=== PATIENT | male | born 1945 | race Caucasian/White ===

== ENCOUNTER → 2024-06-28 | Outpatient (CLI) | payer MEDICARE, SELFPAY ==
[2024-06-28 16:06] LABS: ALB/GLOB Ratio 0.9 RATIO (0.9-2.4); AST(SGOT) 51 U/L (15-37); Alanine Aminotransfer ALT/SGPT 91 U/L (16-61); Albumin, Serum 3.9 g/dL (3.2-5.0); Alkaline Phosphatase 53 U/L (45-117); Anion Gap 6 (5-15); BUN 16 mg/dL (7-18); Calcium,Total 10.2 mg/dL (8.5-10.1); Chloride 104 mmol/L (98-107); Cholesterol 174 mg/dL (200); Creatinine, Serum 1.14 mg/dL (0.70-1.30); EST Glomerular Filtration Rate 66 mL/min (>60); Est Glom Filt Rate - Afr Amer 80 mL/min (>60); Globulin 4.4 g/dL (2.2-4.2); Glucose 89 mg/dL (74-106); High Density Lipoprotein 52 mg/dL; Potassium 4.4 mmol/L (3.5-5.1); Protein, Total 8.3 g/dL (6.4-8.2); Sodium Level 137 mmol/L (136-145); T4 Free Direct 1.19 ng/dL (0.76-1.46); Triglycerides 162 mg/dL; Very Low Density Lipoprotein 32 mg/dL (5-40)
== END | disposition home or self-care (01) ==
LOC: BIMLAB 13:37
PROVIDERS: PCP Family Medicine; Referring Provider Internal Medicine; Visit Provider Internal Medicine
DX: E11.9 Type 2 diabetes mellitus without complications (principal); K52.9 Noninfective gastroenteritis and colitis, unspecified; R35.0 Frequency of micturition; Z12.5 Encounter for screening for malignant neoplasm of prostate
CPT/HCPCS: 36415; 80053; 80061; 84153; 84439; 84443; G0103

== ENCOUNTER → 2025-04-27 | Outpatient (CLI) | payer MEDICARE, SELFPAY ==
[2025-04-27 10:20] LABS: Absolute Lymphocyte Count 2.19 X10^3/uL (0.83-4.51); Basophil# 0.07 X10^3/uL; Basophil% 1.1 % (0-1); Eosinophil# 0.36 X10^3/uL; Eosinophils% 5.7 % (0-5); Hematocrit 44.3 % (40-54); Hemoglobin 15.6 g/dL (13.0-16.5); Lymphocyte # 2.19 X10^3/ul (0.83-4.51); Lymphocyte % 34.9 % (19-41); Mean Corp Hgb Conc 35.2 g/dL (32-36); Mean Corpuscular Hgb 32.9 pg (27.0-32.0); Mean Corpuscular Volume 93.5 fL (80-94); Mean Platelet Vol. 10.1 fl (6.2-12.0); Monocyte% 9.6 % (0-10); NRBC Flagged by Analyzer 0 % (0-5); Neutrophil # 3.04 X10^3/uL (2.7-7.7); Neutrophil % 48.4 % (47-70); Platelet Count 193 K/mm3 (150-450); RBC Distribution Width CV 11.9 % (11.6-14.6); Red Blood Count 4.74 M/mm3 (4.6-6.2); White Blood Count 6.3 K/mm3 (4.4-11.0)
[2025-04-27 10:47] LABS: ALB/GLOB Ratio 1.2 RATIO (0.9-2.4); AST(SGOT) 47 U/L (<=37); Alanine Aminotransfer ALT/SGPT 71 U/L (<=46); Alkaline Phosphatase 49 U/L (40-129); Anion Gap 12 (5-15); BUN 18 mg/dL (4-19); BUN/Creat Ratio 15.3 RATIO (10-20); Calcium,Total 9.8 mg/dL (7.6-11.0); Carbon Dioxide 21.8 mmol/L (21.0-32.0); Chloride 105 mmol/L (98-108); Cholesterol 160 mg/dL (<=200); Creatinine, Serum 1.16 mg/dL (0.70-1.20); EST Glomerular Filtration Rate 65 (>60); Globulin 3.4 g/dL (2.2-4.2); Glucose 102 mg/dL (70-99); High Density Lipoprotein 47 mg/dL; Low Density Lipoprotein Calc. 83 mg/dL; Potassium 4.4 mmol/L (3.3-5.1); Protein, Total 7.3 g/dL (5.9-8.4); Sodium Level 139 mmol/L (133-145); Total Bilirubin 0.59 mg/dL (0.00-1.30); Triglycerides 150 mg/dL; Very Low Density Lipoprotein 30 mg/dL (5-40); cholesterol:hdl ratio screen 3.38
--- OUTSIDE RECORDS SUMMARY | 2025-04-27 11:38 | XMS RPT_ITS | CCD ---
Author Organization [facility] Care Team Providers Care Insurance Assistant Name Role Phone VON TOBIN DO Primary Care Physician VON TOBIN DO Attending Unavailable VON TOBIN DO Primary Care Unavailable VON TOBIN DO Attending Unavailable VON TOBIN DO Primary Care Unavailable DR CLYDE MAGDALENO MD Attending UnavailVON Glass DO Primary Care Unavailable [place] Khanna Primary Care Unavailable [place] Khanna Referring Unavailable Kyle Hernandez Attending Unavailable Gil Montalvo Attending Unavailable Gil Montalvo Referring Unavailable Kyle Hernandez Primary Care Unavailable Allergies Allergy Classification Reported Allergen(s) Allergy Type Date of Onset Reaction(s) Facility (3 sources) Sulfonamides (Antibiotic); Translations: [sulfa drugs] Drug allergy Tongue swelling (finding) [facility] (1 source) Sulfonamide; Translations: [sulfa drugs] Drug allergy Tongue swelling (finding) [facility] (1 source) Sulfonamides (Antibiotic) Drug allergy (disorder) 4 [facility] Repository Medications Current Medications Medication Drug Class(es) Dates Sig (Normalized) Sig (Original) dicyclomine hydrochloride 20 mg oral tablet (2 sources) Anticholinergic Start: 08-09-2023 dicyclomine 20 mg oral tablet Dose : 20 mg = 1 tab(s), Oral, QID, 30 to 60 minutes before meals, # 30 tab(s), 0 Refill(s), Pharmacy: [facility]/pharmacy #[id number], Diarrhea, 172.7, cm, 08/09/23 11:28:00 EDT, Height, kg, 08/09/23 11:28:00 EDT, Dosing Weight Start Date: 08/09/23 Status: Ordered lisinopril 30 mg oral tablet (4 sources) Angiotensin Converting Enzyme Inhibitor Start: 08-09-2023 lisinopril 30 mg oral tablet Dose : 30 mg = 1 tab(s), Oral, qDay, # 90 tab(s), 3 Refill(s), [id number], 172.7, cm, 08/09/23 11:28:00 EDT, Height, kg, 08/09/23 11:28:00 EDT, Dosing Weight Start Date: 08/09/23 Status: Ordered Start: 05-29-2022 lisinopril 30 mg oral tablet Dose : 30 mg = 1 tab(s), Oral, qDay, # 90 tab(s), 0 Refill(s), [id number], 172, cm, 02/10/21 11:03:00 EDT, Height, kg, 02/10/21 11:03:00 EDT, Dosing Weight Start Date: 05/29/22 Status: Ordered metFORMIN hydrochloride 1000 mg oral tablet (3 sources) Biguanide Start: 02-09-2023 metFORMIN 1000 mg oral tablet (IR) Dose : 1,000 mg = 1 tab(s), Oral, BID, # 180 tab(s), 1 Refill(s), [id number], 172, cm, 11/17/22 8:18:00 EST, Height, kg, 11/17/22 8:18:00 EST, Dosing Weight Start Date: 02/09/23 Status: Ordered Start: 12-08-2021 metFORMIN 1000 mg oral tablet (IR) Dose : 1,000 mg = 1 tab(s), Oral, BID, # 180 tab(s), 3 Refill(s), Pharmacy: [facility] #[id number], 172, cm, 02/10/21 11:03:00 EDT, Height, kg, 02/10/21 11:03:00 EDT, Dosing Weight Start Date: 12/08/21 Status: Ordered pravastatin sodium 40 mg oral tablet (4 sources) HMG-CoA Reductase Inhibitor Start: 08-09-2023 pravastatin 40 mg or al tablet Dose : 40 mg = 1 tab(s), Oral, qDay, # 90 tab(s), 3 Refill(s), [id number], 172.7, cm, 08/09/23 11:28:00 EDT, Height, kg, 08/09/23 11:28:00 EDT, Dosing Weight Start Date: 08/09/23 Status: Ordered Start: 05-29-2022 pravastatin 40 mg oral tablet Dose : 40 mg = 1 tab(s), Oral, qDay, # 90 tab(s), 0 Refill(s), 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 Complication of device; implant or graft (1 source) Atherosclerosis of coronary artery bypass graft(s) without angina pectoris; Translations: [Atherosclerosis of coronary artery bypass graft(s) without angina pectoris] Onset: 08-17-20 Chronic Diabetes mellitus without complication (9 sources) Type 2 diabetes mellitus without complication; Translations: [Type 2 diabetes mellitus] Onset: 08-17-20 24 06-23-2022 Chronic Disorders of lipid metabolism (4 sources) Pure hypercholesterolemia 06-23-2022 Chroni c Essential hypertension (4 sources) Essential hypertension 06-23-2022 Chronic Genitourinary symptoms and ill-defined conditions (1 source) Frequency of micturition; Translations: [Frequency of micturition] Onset: 08-17-20 Episodic Heart valve disorders (4 sources) Systolic murmur 06-23-2022 Episodic Noninfectious gastroenteritis (1 source) Noninfective gastroenteritis and colitis, unspecified; Translations: [Noninfective gastroenteritis and colitis, unspecified] Onset: 08-17-20 Episodic Other gastrointestinal disorders (2 sources) Diarrhea 08-09-2023 Episodic Other screening for suspected conditions (not mental disorders or infectious disease) (2 sources) Encounter for screening for malignant neoplasm of colon; Translations: [Encounter for screening for malignant neoplasm of colon] Onset: 11-22-19 Episodic Unclassified (2 sources) For resuscitation 08-09-2023 Unclassified (2 sources) Grade A1 albuminuria 11-17-2022 Unclassified (2 sources) Influenza vaccination declined Onset: 11-17-1911-17-2022 Unclassified (2 sources) Pneumococcal vaccination declined 07-27-2022 Unclassified (2 sources) SARS-CoV-2 vaccination declined 07-27-2022 Past or Other Problems Problem Classification Problem Date Documented Da te Episodic/Chronic Other gastrointestinal disorders (2 sources) Diarrhea, unspecified; Translations: [Diarrhea, unspecified] Onset: 08-18-2023 Episodic Results Test Name Value Interpretation Reference Range Facility Comprehensive Metabolic Prof [facility] 06-28-2024 Albumin [Mass/Vol] 3.9 g/dL Normal 3.2-5.0 [facility] Comment on above: Order Comment: Comme nts: Send to Dr. Hernandez Send to Dr. Hernandez Performed By: #### L 500.4050, L506.0400, L500.4100, L501.9520, L501.9910 #### [facility] [address] [place], [address] Albumin/Globulin [Mass ratio] 0.9 {ratio} Normal 0.9-2.4 [facility] Comment on above: Order Comment: Commliz nts: Send to Dr. Hernandez Send to Dr. Hernandez Performed By: #### L 500.4050, L506.0400, L500.4100, L501.9520, L501.9910 #### [facility] [address] [place], [address] ALK P 53 U/L Normal 45-117 [facility] Comment on above: Order Comment: Commliz nts: Send to Dr. Hernandez Send to Dr. Hernandez Performed By: #### L 500.4050, L506.0400, L500.4100, L501.9520, L501.9910 #### [facility] [address] [place], [address] ALT [Catalytic activity/Vol] 91 U/L High 16-61 [facility] Comment on above: Order Comment: Comme nts: Send to Dr. Hernandez Send to Dr. Hernandez Performed By: #### L 500.4050, L506.0400, L500.4100, L501.9520, L501.9910 #### [facility] [address] [place], [address] AST [Catalytic activity/Vol] 51 U/L High 15-37 [facility] Comment on above: Order Comment: Commliz nts: Send to Dr. Hernandez Send to Dr. Hernandez Performed By: #### L 500.4050, L506.0400, L500.4100, L501.9520, L501.9910 #### [facility] [address], [address] Bilirubin [Mass/Vol] 0.70 mg/dL Normal 0.20-1.00 [facility] Comment on above: Order Comment: Commliz nts: Send to Dr. Hernandez Send to Dr. Hernandez Result Comment: For patients on eltrombopag therapy, use of Dimension [place] TBIL is not recommended. Performed By: #### L 500.4050, L506.0400, L500.4100, L501.9520, L501.9910 #### [facility] [address] [place], [address] BUN/CRE 14.0 RATIO Normal 10-20 [facility] Comment on above: Order Comment: Estela nts: Send to Dr. Hernandez Send to Dr. Hernandez Performed By: #### L 500.4050, L506.0400, L500.4100, L501.9520, L501.9910 #### [facility] [address] [place], [address] CA,Total 10.2 mg/dL High 8.5-10.1 [facility] Comment on above: Order Comment: Estela nts: Send to Dr. Hernandez Send to Dr. Hernandez Performed By: #### L 500.4050, L506.0400, L500.4100, L501.9520, L501.9910 #### [facility] [address] [place], [address] Chloride [Moles/Vol] 104 mmol/L Normal 98-107 [facility] Comment on above: Order Comment: Comme nts: Send to Dr. Hernandez Send to Dr. Hernandez Performed By: #### L 500.4050, L506.0400, L500.4100, L501.9520, L501.9910 #### [facility] [address] [place], [address] CO2 [Moles/Vol] 27.0 mmol/L Normal 21.0-32.0 [facility] Comment on above: Order Comment: Commliz nts: Send to Dr. Hernandez Send to Dr. Hernandez Performed By: #### L 500.4050, L506.0400, L500.4100, L501.9520, L501.9910 #### [facility] [address] [place], [address] Creatinine [Mass/Vol] 1.14 mg/dL Normal 0.70-1.30 [facility] Comment on above: Order Comment: Commliz nts: Send to Dr. Hernandez Send to Dr. Hernandez Result Comment: The validity of the calculated GFR GFRAA in patients over 70 years has not been determined. Clinical correlation is essential. Performed By: #### L 500.4050, L506.0400, L500.4100, L501.9520, L501.9910 #### [facility] [address] [place], [address] EST GFR - AA 80 mL/min Normal >60 [facility] Comment on above: Order Comment: Commliz nts: Send to Dr. Hernandez Send to Dr. Hernandez Result Comment: Afri can Fijian GFR Calc Performed By: #### L 500.4050, L506.0400, L500.4100, L501.9520, L501.9910 #### [facility] [address] [place], [address] GAP 6 Normal 5-15 [facility] Comment on above: Order Comment: Commliz nts: Send to Dr. Hernandez Send to Dr. Hernandez Performed By: #### L 500.4050, L506.0400, L500.4100, L501.9520, L501.9910 #### [facility] [address] [place], [address] GFR/1.73 sq M.predicted among non-blacks MDRD (S/P/Bld) [Vol rate/Area] 66 mL/min/{1.73_m2} Normal >60 [facility] Comment on above: Order Comment: Commliz nts: Send to Dr. Hernandez Send to Dr. Hernandez Result Comment: Non- GFR Calc Performed By: #### L 500.4050, L506.0400, L500.4100, L501.9520, L501.9910 #### [facility] [address] [place], [address] Globulin (S) [Mass/Vol] 4.4 g/dL High 2.2-4.2 [facility] Comment on above: Order Comment: Commliz nts: Send to Dr. Hernandez Send to Dr. Hernandez Performed By: #### L 500.4050, L506.0400, L500.4100, L501.9520, L501.9910 #### [facility] [address] [place], [address] Glucose [Mass/Vol] 89 mg/dL Normal 74-106 [facility] Comment on above: Order Comment: Commliz nts: Send to Dr. Hernandez Send to Dr. Hernandez Performed By: #### L 500.4050, L506.0400, L500.4100, L501.9520, L501.9910 #### [facility] [address] [place], [address] Potassium [Moles/Vol] 4.4 mmol/L Normal 3.5-5.1 [facility] Comment on above: Order Comment: Commliz nts: Send to Dr. Hernandez Send to Dr. Hernandez Performed By: #### L 500.4050, L506.0400, L500.4100, L501.9520, L501.9910 #### [facility] [address] [place], [address] Sodium [Moles/Vol] 137 mmol/L Normal 136-145 [facility] Comment on above: Order Comment: Commliz nts: Send to Dr. Hernandez Send to Dr. Hernandez Performed By: #### L 500.4050, L506.0400, L500.4100, L501.9520, L501.9910 #### [facility] [address] [place], [address] T PROT 8.3 g/dL High 6.4-8.2 [facility] Comment on above: Order Comment: Estela nts: Send to Dr. Hernandez Send to Dr. Hernandez Performed By: #### L 500.4050, L506.0400, L500.4100, L501.9520, L501.9910 #### [facility] [address] [place], [address] Urea nitrogen [Mass/Vol] 16 mg/dL Normal 7-18 [facility] Comment on above: Order Comment: Commliz nts: Send to Dr. Hernandez Send to Dr. Hernandez Performed By: #### L 500.4050, L506.0400, L500.4100, L501.9520, L501.9910 #### [facility] [address] [place], [address] Internal Medicine Office Vis karina 06-28-2024 Internal Medicine Office Visit [facility] [place] [address] [place] [address] OFFICE VISIT Date of Service: 06/28/24 MR#: [id number] Acct: [id number] Name: JEAN BLACKMON Rep #: [id number] : 1945 Provider: Dr. Kyle atwood DO Age/Sex: 78/M Location: [facility] Status: Signed Intake Vital Signs 06/28/24 12:59 Height 5 ft 7 in Weight: 214 lb 4 oz BMI 33.5 BP 136/88 H Blood Pressure Location Lt brachial Position Sitting Respiration 16 Pulse 69 Pulse Source Monitor Temp 98.2 F Temp Source Temporal Pulse Oximetry (%) 97 Oxygen Delivery Method room air Intake Visit Reasons: EST NEW PT - PPWK SENT Chief Complaint: est care Quality Officer Required: No Accompanied by: Self Is patient in pain?: No Allergies Sulfa (Sulfonamide Antibiotics) Allergy (Intermediate, Verified 06/28/24 12:53) Angioedema Medications ???Medication ???Instructions ???Recorded ???Confirmed ???Type lisinopril 30 mg tablet mg PO 06/28/24 06/28/24 History pravastatin 40 mg tablet 40 mg PO QDAY 06/28/24 06/28/24 History saw palm 160 mg-vit E 100 tab PO 06/28/24 06/28/24 History unit-selen 100 sdk-mhxu-uhrtyu-pygeum tablet (Prostate Health) Have you fallen in the past year?: No PFSH Medical History (Updated 06/28/24 @ 14:[address] Kyle Hernandez, ) Urinary frequency Chronic diarrhea Type 2 diabetes mellitus Heart murmur Diabetes Cataracts, bilateral Surgical History (Updated 06/28/24 @ 12:51 by Virginia Charles MA) History of heart bypass surgery Hx of knee surgery Hx of hernia repair Family History (Updated 06/28/24 @ 12:54 by Virginia Charles MA) Mother Colon cancer, Onset Age: 80 Father Colon cancer, Onset Age: 75 Social History (Updated 06/28/24 @ 12:59 by Virginia Charles MA) household members: spouse housing: house current occupational status: retired Smoking Status: Never smoker alcohol intake: current alcohol intake frequency: holidays/special occasions only substance use type: does not use what type of physical activity do you participate in: none seatbelt use: always do you feel safe at home: Yes HPI HPI Chief Complaint: est care Details: JEAN BLACKMON, is a 78 M who presents to the office today for a visit to establish care. His major complaint is that he is having severe spontaneous loose stools when he tries to exercise. Occasionally he has difficulty with spontaneous urination when he exercises 2. He had a colonoscopy in November of this year that was normal but the mechanical project engineer did not give him any advice on what to do for his bowel problem. He had been taking metformin but was informed a year ago that the doctor at that time did not think he had diabetes. He has a long history of coronary artery disease and has had cardiac bypass surgery about 10 years ago. He has no shortness of breath, no chest discomfort. He has a chronic cough for he coughs up minor amounts of phlegm. ROS Const Constitutional: No body ache, chills, excessive sweating, fatigue, fever(s), frequent falls, headache(s), snoring, weakness or change in appetite Eyes Eyes: No blurry vision, change in vision, eye pain or Light sensitivity ENT ENT: No abnormal hearing, ear or mastoid pain, tinnitus, nasal congestion, headache(s), neck pain or sore throat Resp Respiratory: No cough, shortness of breath, snoring or wheezing Cardio Cardiology: No chest pain at rest, chest pain with exertion, excessive sweating, dyspnea on exertion, lightheadedness, orthopnea or palpitations Gastro GI: No abdominal pain, change in bowel habits, constipation, cramping, diarrhea, nausea/dyspepsia or vomiting Genitourinary Male: No burning urination, painful urination, urinary incontinence or urinary frequency Musc Musculoskeletal: No abnormal gait, joint pain, back pain, limited range of motion, muscle weakness, neck pain or numbness Skin Skin: No dry skin, redness, lesions, itchy eyes, rash or wounds Neuro Neurology: No abnormal gait, abnormal hearing, weakness, frequent falls, headache(s), memory loss or numbness Psych Psychiatric: No anxiety, No change in appetite, No depression, No memory loss and No Thoughts of harming yourself/Others Endo Endocrine: No cold intolerance, excessive sweating, fatigue, flushing, heat intolerance, increased thirst/drinking or increased hunger Aller/Imm Allergy/Immunologic: No itchy eyes, seasonal allergy symptoms, hives or wheezing Mannie/Lymp Hematologic/Lymphatic: No easy bleeding or easy bruising Exam Const General: cooperative and healthy appearing Nutritional Appearance: average body habitus Orientation: oriented x3 HENMT Head: normal to inspection Ears: hearing grossly normal bilaterally, TM's normal bilaterally and EAC's normal Nose: external nose normal Face and sinus: norm (more content not included)... Normal [facility] Lipid Profileon 06-28-2024 Cholesterol [Mass/Vol] 174 mg/dL Normal 200 [facility] Comment on above: Order Comment: Commliz nts: Send to Dr. Hernandez Send to Dr. Hernandez Result Comment: <200 mg/dL Desirable 200-240 mg/dL Borderline >240 mg/dL High Risk Performed By: #### L 500.4050, L506.0400, L500.4100, L501.9520, L501.9910 #### [facility] [address] [place], [address] Cholesterol in HDL [Mass/Vol] 52 mg/dL Normal [facility] Comment on above: Order Comment: Comme nts: Send to Dr. Hernandez Send to Dr. Hernandez Result Comment: The drugs N-Acetylcysteine and Metamizole may falsely depress this assay. Reference Range HDL <40 mg/dL Low HDL Cholesterol HDL >or= 60 mg/dL High HDL Cholesterol Performed By: #### L 500.4050, L506.0400, L500.4100, L501.9520, L501.9910 #### [facility] [address] [place], [address] Cholesterol in LDL [Mass/Vol] 90 mg/dL Normal 0-130 [facility] Comment on above: Order Comment: Commliz nts: Send to Dr. Hernandez Send to Dr. Hernandez Performed By: #### L 500.4050, L506.0400, L500.4100, L501.9520, L501.9910 #### [facility] [address] [place], [address] Cholesterol in VLDL [Mass/Vol] 32 mg/dL Normal 5-40 [facility] Comment on above: Order Comment: Estela nts: Send to Dr. Hernandez Send to Dr. Hernandez Performed By: #### L 500.4050, L506.0400, L500.4100, L501.9520, L501.9910 #### [facility] [address] [place], [address] Triglyceride [Mass/Vol] 162 mg/dL Normal [facility] Comment on above: Order Comment: Comme nts: Send to Dr. Hernandez Send to Dr. Hernandez Result Comment: The drugs N-Acetylcysteine and Metamizole may falsely depress this assay. Serum Triglycerides Reference Interval Normal <150 mg/dL Borderline high 150 - 199 mg/dL High 200 - 499 mg/dL Very High > or = 500 mg/dL Performed By: #### L 500.4050, L506.0400, L500.4100, L501.9520, L501.9910 #### [facility] [address] [place], [address] PSA,Total - Annual Screenon 06-28-2024 PSA,TOT SCREEN 2.30 ng/mL Normal 0.00-4.00 [facility] Comment on above: Order Comment: Comme nts: Send to Dr. Hernandez Send to Dr. Hernandez Result Comment: This test was performed using the TPSA assay method for the [employer] chemistry system. Values obtained with different assay methods cannot be used interchangably. When changing PSA assays in the course of monitoring a patient, additional sequential testing should be carried out to confirm baseline values. Performed By: #### L 500.4050, L506.0400, L500.4100, L501.9520, L501.9910 #### [facility] [address] [place], [address] T4 Free Directon 06-28-2024 T4 FREE DIRECT 1.19 ng/dL Normal 0.76-1.46 [facility] Comment on above: Order Comment: Commliz nts: Send to Dr. Hernandez Send to Dr. Hernandez Performed By: #### L 500.4050, L506.0400, L500.4100, L501.9520, L501.9910 #### [facility] [address] [place], [address] Thyroid Stim Hormone (TSH)on 06-28-2024 TSH 1.540 uIU/mL Normal 0.358-3.740 [facility] Comment on above: Order Comment: Comme nts: Send to Dr. Hernandez Send to Dr. Hernandez Performed By: #### L 500.4050, L506.0400, L500.4100, L501.9520, L501.9910 #### [facility] [address] [place], [address] Final Surgical Pathology Rep armida 11-24-2023 Final Surgical Pathology Report . Pathology Reports Accession: Collected Date/Time: Received Date/Time: Pathologist: [id number] 11/22/2023 09:00 EST 11/23/2023 09:11 EST MD ABDIAZIZ OLIVER Final Surgical Pathology Report DIAGNOSIS: A. CECUM, BIOPSY: - SLIGHTLY POLYPOID FRAGMENTS OF COLONIC MUCOSA WITH NO SPECIFIC PATHOLOGIC CHANGES B. SIGMOID COLON, BIOPSY: - SLIGHTLY POLYPOID FRAGMENT OF COLONIC MUCOSA WITH NO SPECIFIC PATHOLOGIC CHANGES CLINICAL INFORMATION: PROCEDURE: COLONOSCOPY WITH POLYPECTOMY PREOPERATIVE DIAGNOSIS: DIARRHEA POSTOP DIAGNOSIS: SAME SPECIMEN: A CECUM POLYP B SIGMOID POLYP DISTAL GROSS DESCRIPTION: All parts labelled with patient name and [id number] A. Received in formalin labeled cecum polyp are 2 boateng tissue fragments measuring 0.2 and 0.3 cm. TS-1 B. Received in formalin labeled sigmoid polyp is 1 boateng tissue fragment measuring 0.3 cm. TS-1 Hayley Beard, Grossing Career Based Intervention Coordinator/ Dr. Minesh Gerardo, Pathologist Dictated by Hayley Beard MICROSCOPIC DESCRIPTION: The microscopic examination is performed, except in the case of Gross Only. Electronically Signed by Pathology Report verified by [facility] ABDIAZIZ OLIVER MD Sign out Date: 11/24/2023 08:29 Performing Lab: [facility], [address] [place] [address] Pathology Dept Disclaimer If ancillary studies were utilized, the following Laboratory Developed Test (LDT) disclaimer will apply: Under CLIA requirements, [facility] Laboratory is qualified to perform high complexity testing. For all ancillary stains, positive and negative controls stain appropriately. Performance characteristics of immunohistochemical and chromogenic in-situ hybridization tests have been determined by [facility]. These tests are used for clinical purposes, They should not be regarded as investigational or for research. Normal [facility]) LABORATORYOrdered By: Bozena Hernandez on 11-22-2023 Glucose [Mass/Vol] 107 mg/dL Normal 82 - 115 mg/dL [facility] CALPROon 08-19-2023 Calprotectin Interp Normal Normal Normal [facility]) Comment on above: Result Comment: On 2022, [facility] [employer] implemented a new fecal calprotectin method, the [employer] Liaison Calprotectin assay. For assistance with interpretation of results in patients undergoing serial monitoring, contact Client Services at [phone] or [phone] to discuss options, preferably within 7 days of issuing this report. Interpretation: <50.0 ug/g: Normal 50.0 ug/g - 120.0 ug/g: Borderline elevated. Re-evaluation in 4-6 weeks is recommended if clinically indicated. >120.0 ug/g: Elevated Performed By: [facility] [address] [place] [address] [employer] Machine Operator: Chao Hunter III, M.D. CLIA#: [id number] Performed By: #### C DIFFAO, CALPRO #### [place] [address] [place], [place] [address] #### STGIPCR #### [address] [address] Calprotectin, Fecal Quantitative 15.7 ug/g Normal <50 [facility] ([place]) Comment on above: Result Comment: Perf ormed By: [facility] [address] [place] [address] [employer] Machine Operator: Chao Hunter III, M.D. CLIA#: [id number] Performed By: #### C DIFFAO, CALPRO #### [place] [address] [place], [place] [address] #### STGIPCR #### [address] [address] CDIFFAOon 08-18-2023 Clostridium difficile toxin A/B PCR Negative Normal Negative [facility] ([place]) Comment on above: Performed By: #### C CORDELIA CALPRO #### [address] [address] #### STGIPCR #### [facility] [address] [place] [address] Clostridium difficile toxin A/B PCR Int Normal [facility] ([place]) Comment on above: Result Comment: José Miguel s C. difficile Negative result does not rule out the possibility of infection with toxigenic C. difficile. Satya C. difficile Assay results should not be used as the sole basis for diagnosis, treatment, or patient management decisions and should be interpreted in conjunction with other clinical and laboratory findings. See Below Performed By: #### Vicky STOREY CALPRO #### [address] [address] #### STGIPCR #### [place] [id number] LABORATORYOrdered By: Jacy Hernandes on 08-18-2023 Adenovirus 40+41 DNA FELIPE+non-probe Ql (Stl) Not Detected *NA* (08/18/23 10:49 AM) Invalid Interpretation Code Not Detected AH Auto Microbiology GL SS Astrovirus subtypes 1-8 RNA FELIPE+non-probe Ql (Stl) Not Detected *NA* (08/18/23 10:49 AM) Invalid Interpretation Code Not Detected AH Auto Microbiology GL SS C. cayetanensis DNA FELIPE+non-probe Ql (Stl) Not Detected *NA* (08/18/23 10:49 AM) Invalid Interpretation Code Not Detected AH Auto Microbiology GL SS C. coli+jejuni+upsalien sis DNA FELIPE+non-probe Ql (Stl) Not Detected *NA* (08/18/23 10:49 AM) Invalid Interpretation Code Not Detected AH Auto Microbiology GL SS Cryptosporidium sp DNA FELIPE+non-probe Ql (Stl) Not Detected *NA* (08/18/23 10:49 AM) Invalid Interpretation Code Not Detected AH Auto Microbiology GL SS E. coli enteroaggregative Lois plasmid aggR+aatA genes FELIPE+non-probe Ql (Stl) Not Detected *NA* (08/18/23 10:49 AM) Invalid Interpretation Code Not Detected AH Auto Microbiology GL SS E. coli enteropathogenic eae gene FELIPE+non-probe Ql (Stl) Not Detected *NA* (08/18/23 10:49 AM) Invalid Interpretation Code Not Detected AH Auto Microbiology GL SS E. coli enterotoxigenic ltA+st1a+st1b genes FELIPE+non-probe Ql (Stl) Not Detected *NA* (08/18/23 10:49 AM) Invalid Interpretation Code Not Detected AH Auto Microbiology GL SS E. coli O157 DNA FELIPE+non-probe Ql (Stl) Not Applicable (08/18/23 10:49 AM) Invalid Interpretation Code Not Detected AH Auto Microbiology GL SS E. coli stx1+stx2 genes FELIPE+non-probe Ql (Stl) Not Detected *NA* (08/18/23 10:49 AM) Invalid Interpretation Code Not Detected AH Auto Microbiology GL SS E. histolytica DNA FELIPE+non-probe Ql (Stl) Not Detected *NA* (08/18/23 10:49 AM) Invalid Interpretation Code Not Detected AH Auto Microbiology GL SS G. lamblia DNA FELIPE+non-probe Ql (Stl) Not Detected *NA* (08/18/23 10:49 AM) Invalid Interpretation Code Not Detected AH Auto Microbiology GL SS Norovirus genogroup I+II RNA FELIPE+non-probe Ql (Stl) Not Detected *NA* (08/18/23 10:49 AM) Invalid Interpretation Code Not Detected AH Auto Microbiology GL SS Plesiomonas shigelloides Not Detected *NA* (08/18/23 10:49 AM) Invalid Interpretation Code Not Detected AH Auto Microbiology GL SS Rotavirus A RNA FELIPE+non-probe Ql (Stl) Not Detected *NA* (08/18/23 10:49 AM) Invalid Interpretation Code Not Detected AH Auto Microbiology GL SS S. enterica+bongori DNA FELIPE+non-probe Ql (Stl) Not Detected *NA* (08/18/23 10:49 AM) Invalid Interpretation Code Not Detected AH Auto Microbiology GL SS Sapovirus genogroups I+II+IV+V RNA FELIPE+non-probe Ql (Stl) Not Detected *NA* (08/18/23 10:49 AM) Invalid Interpretation Code Not Detected AH Auto Microbiology GL SS Shigella species+EIEC invasion plasmid antigen H ipaH gene FELIPE+non-probe Ql (Stl) Not Detected *NA* (08/18/23 10:49 AM) Invalid Interpretation Code Not Detected AH Auto Microbiology GL SS Stool GI Comment See Comment 2 (08/18/23 10:49 AM) Invalid Interpretation Code AH Auto Microbiology GL SS Comment on above: Interpretive Data: V irus, bacteria, and parasite nucleic acid may persist in vivo independently of organism viability. Negative Film Array GI panel results in the setting of clinical illness compatible with gastroenteritis may be due to infection by pathogens that are not detected by this test. False negatives may occur due to genetic variability in the region targeted by the primers. V. cholerae DNA FELIPE+non-probe Ql (Stl) Not Detected *NA* (08/18/23 10:49 AM) Invalid Interpretation Code Not Detected AH Auto Microbiology GL SS V. cholerae+parahaemoly ticus+vulnificus DNA FELIPE+non-probe Ql (Stl) Not Detected *NA* (08/18/23 10:49 AM) Invalid Interpretation Code Not Detected AH Auto Microbiology GL SS Y. enterocolitica DNA FELIPE+non-probe Ql (Stl) Not Detected *NA* (08/18/23 10:49 AM) Invalid Interpretation Code Not Detected AH Auto Microbiology GL SS LABORATORYOrdered By: Shalonda Douglas on 08-18-2023 C. difficile toxin A+B tcdA+tcdB genes FELIPE+probe Ql (Stl) Negative *NA* (08/18/23 10:49 AM) Invalid Interpretation Code Negative AO Auto Urine SS Clostridium difficile toxin A/B PCR Int Satya C. difficile Negative result does not rule out the possibility of infection with toxigenic C. difficile. Satya C. difficile Assay results should not be used as the sole basis for diagnosis, treatment, or patient management decisions and should be interpreted in conjunction with other clinical and laboratory findings. Invalid Interpretation Code AO Auto Urine SS LABORATORYOrdered By: KARLOS COOL CONTRIBUTOR_SYSTEM on 08-18-2023 Calprotectin Interp Normal Invalid Interpretation Code Normal AO Sendouts SS Comment on above: Result Comment: On 2022, [facility] implemented a new fecal calprotectin method, the [employer] Liaison Calprotectin assay. For assistance with interpretation of results in patients undergoing serial monitoring, contact Client Services at [phone] or [phone] to discuss options, preferably within 7 days of issuing this report. Interpretation: <50.0 ug/g: Normal 50.0 ug/g - 120.0 ug/g: Borderline elevated. Re-evaluation in 4-6 weeks is recommended if clinically indicated. >120.0 ug/g: Elevated Performed By: [facility] [address] [place] [address] [employer] Machine Operator: Chao Hunter III, M.D. CLIA#: [id number] Calprotectin, Fecal Quantitative 15.7 1 Invalid Interpretation Code <50 AO [facility] SS Comment on above: Result Comment: Perf ormed By: [facility] [address] [place] [address] [employer] Machine Operator: Donaldo Carrington IIIIA#: [id number] Tereza 08-18-2023 Adenovirus F 40/41 Not detected Normal Not Detected [facility] ([place]) Comment on above: Performed By: #### C DIFFAO, CALPRO #### [place] [address] #### STGIPCR #### [address] [address] Astrovirus Not detected Normal Not Detected [facility] ([place]) Comment on above: Performed By: #### C DIFFAO, CALPRO #### [place] [address] #### STGIPCR #### [address] [address] Campy (jejuni/coli/ups) Not detected Normal Not Detected [facility] ([place]) Comment on above: Performed By: #### C DIFFAO, CALPRO #### [place] [address] #### STGIPCR #### [address] [address] Cryptosporidium Not detected Normal Not Detected [facility] ([place]) Comment on above: Performed By: #### C DIFFAO, CALPRO #### [place] [address] #### STGIPCR #### [facility] [address] [place] [address] Cyclospora Not detected Normal Not Detected [facility] ([place]) Comment on above: Performed By: #### C DIFFAO, CALPRO #### [address] [address] #### STGIPCR #### [facility] [address] [place] [address] E. coli (ETEC) Not detected Normal Not Detected [facility] ([place]) Comment on above: Performed By: #### C DIFFAO, CALPRO #### [address] [address] #### STGIPCR #### [facility] [address] [place] [address] E. coli O157 Not Applicable Normal Not Detected [facility] ([place]) Comment on above: Performed By: #### C DIFFAO, CALPRO #### [address] [address] #### STGIPCR #### [facility] [address] [place] [address] Entamoeba histolytica Not detected Normal Not Detected [facility] ([place]) Comment on above: Performed By: #### C DIFFAO, CALPRO #### [address] [address] #### STGIPCR #### [facility] [address] [place] [address] Enteroaggregative E. coli (EAEC) Not detected Normal Not Detected [facility] ([place]) Comment on above: Performed By: #### C DIFFAO, CALPRO #### [address] [address] #### STGIPCR #### [facility] [address] [place] [address] Enteropathogenic E. coli (EPEC) Not detected Normal Not Detected [facility] ([place]) Comment on above: Performed By: #### C DIFFAO, CALPRO #### [address] [address] #### STGIPCR #### [facility] [address] [place] [address] Giardia lamblia Not detected Normal Not Detected [facility] ([place]) Comment on above: Performed By: #### C DIFFAO, CALPRO #### [address] [address] #### STGIPCR #### [facility] [address] [place] [address] Norovirus GI/GII Not detected Normal Not Detected [facility] ([place]) Comment on above: Performed By: #### C DIFFAO, CALPRO #### [address] [address] #### STGIPCR #### [facility] [address] [place] [address] Plesiomonas shigelloides Not detected Normal Not Detected [facility] ([place]) Comment on above: Performed By: #### C DIFFAO, CALPRO #### [address] [address] #### STGIPCR #### [facility] [address] [place] [address] Rotavirus A Not detected Normal Not Detected [facility] ([place]) Comment on above: Performed By: #### C DIFFAO, CALPRO #### [address] [address] #### STGIPCR #### [facility] [address] [place] [address] Salmonella species, stool Not detected Normal Not Detected [facility] ([place]) Comment on above: Performed By: #### C DIFFAO, CALPRO #### [address] [address] #### STGIPCR #### [facility] [address] [place] [address] Sapovirus I,II,IV,V Not detected Normal Not Detected [facility] ([place]) Comment on above: Performed By: #### C DIFFAO, CALPRO #### [address] [address] #### STGIPCR #### [facility] [address] [place] [address] Shig Tox E. coli (STEC) Not detected Normal Not Detected [facility] ([place]) Comment on above: Performed By: #### C DIFFAO, CALPRO #### [place] [address] #### STGIPCR #### [facility] [address] [place] [address] Shigella/Enteroinvas kimo E. coli (EIEC) Not detected Normal Not Detected [facility] ([place]) Comment on above: Performed By: #### C DIFFJENISE, CALPRO #### [place] [address] #### STGIPCR #### [place] [address] Stool GI Comment See Comment Normal [facility] ([place]) Comment on above: Result Comment: Viru s, bacteria, and parasite nucleic acid may persist in vivo independently of organism viability. Negative Film Array GI panel results in the setting of clinical illness compatible with gastroenteritis may be due to infection by pathogens that are not detected by this test. False negatives may occur due to genetic variability in the region targeted by the primers. Performed By: #### C DIFFAO, CALPRO #### [place] [address] #### STGIPCR #### [place] [address] Vibrio cholerae Not detected Normal Not Detected [facility] ([place]) Comment on above: Performed By: #### C DIFFAO, CALPRO #### [place] [address] #### STGIPCR #### [place] [id number] Vibrio par/vul/chol Not detected Normal Not Detected [facility] ([place]) Comment on above: Performed By: #### C DIFFAO, CALPRO #### [place] [address] #### STGIPCR #### [address] [address] Yersinia enterocolitica Not detected Normal Not Detected [facility] ([place]) Comment on above: Performed By: #### C DAVE STOREYRO #### [address] [address] #### STGIPCR #### [address] [address] .Auto Diffon 06-07-2023 Basophil, Absolute 0.1 10 3/mcL Normal 0.0-0.2 [facility] ([place]) Comment on above: Performed By: #### G FR, LIPID, CBC, A1C, FT4, CMP, ADIFF, ANEU, PSA, TSH #### [address] [address] Basophils/100 WBC (Bld) 1.1 % Normal 0.0-2.5 [facility] ([place]) Comment on above: Performed By: #### G FR, LIPID, CBC, A1C, FT4, CMP, ADIFF, ANEU, PSA, TSH #### [address] [address] Eosinophil, Absolute 0.3 10 3/mcL Normal 0.0-0.4 [facility] ([place]) Comment on above: Performed By: #### G FR, LIPID, CBC, A1C, FT4, CMP, ADIFF, ANEU, PSA, TSH #### [address] [address] Eosinophils/100 WBC (Bld) 5.0 % Normal 0.0-7.0 [facility] ([place]) Comment on above: Performed By: #### G FR, LIPID, CBC, A1C, FT4, CMP, ADIFF, ANEU, PSA, TSH #### [address] [address] Lymphocyte, Absolute 2.0 10 3/mcL Normal 0.8-3.9 [facility] ([place]) Comment on above: Performed By: #### G FR, LIPID, CBC, A1C, FT4, CMP, ADIFF, ANEU, PSA, TSH #### [address] [address] Lymphocytes/100 WBC (Bld) 34.2 % Normal 10.0-50.0 [facility] ([place]) Comment on above: Performed By: #### G FR, LIPID, CBC, A1C, FT4, CMP, ADIFF, ANEU, PSA, TSH #### [address] [address] Monocyte, Absolute 0.8 10 3/mcL Normal 0.2-1.0 [facility] ([place]) Comment on above: Performed By: #### G FR, LIPID, CBC, A1C, FT4, CMP, ADIFF, ANEU, PSA, TSH #### [address] [address] Monocytes/100 WBC (Bld) 13.2 % High 1.7-13.0 [facility] ([place]) Comment on above: Performed By: #### G FR, LIPID, CBC, A1C, FT4, CMP, ADIFF, ANEU, PSA, TSH #### [address] [address] Neutrophils/100 WBC (Bld) 46.5 % Normal 37.0-80.0 [facility] ([place]) Comment on above: Performed By: #### G FR, LIPID, CBC, A1C, FT4, CMP, ADIFF, ANEU, PSA, TSH #### [address] [address] .GFRon 06-07-2023 GFR 79 ml/min/1.73sqm Normal [facility] ([place]) Comment on above: Result Comment: GFR Population mean for , Non- Americans Ages 20-29 = 116 mL/min/1.73 sq.m. Ages 30-39 = 107 mL/min/1.73 sq.m. Ages 40-49 = 99 mL/min/1.73 sq.m. Ages 50-59 = 93 mL/min/1.73 sq.m. Ages 60-69 = 85 mL/min/1.73 sq.m. Ages 70+ = 75 mL/min/1.73 sq.m. Chronic Kidney Disease: Less than 60 mL/min/1.73 square meters End Stage Renal Disease: Less than 15 mL/min/1.73 square meters Performed By: #### DAVE CORTEZRO #### [address] [address] #### STGIPCR #### [address] [address] GFR Non- 65 ml/min/1.73sqm Normal [facility] ([place]) Comment on above: Result Comment: GFR Population mean for , Non- Americans Ages 20-29 = 116 mL/min/1.73 sq.m. Ages 30-39 = 107 mL/min/1.73 sq.m. Ages 40-49 = 99 mL/min/1.73 sq.m. Ages 50-59 = 93 mL/min/1.73 sq.m. Ages 60-69 = 85 mL/min/1.73 sq.m. Ages 70+ = 75 mL/min/1.73 sq.m. Chronic Kidney Disease: Less than 60 mL/min/1.73 square meters End Stage Renal Disease: Less than 15 mL/min/1.73 square meters Performed By: #### DAVE CORTEZRO #### [place] [address] #### STGIPCR #### [address] [address] .NEUABSon 06-07-2023 Neutrophil, Absolute 2.8 10 3/mcL Low 2.9-6.2 [facility] ([place]) Comment on above: Performed By: #### G FR, LIPID, CBC, A1C, FT4, CMP, ADIFF, ANEU, PSA, TSH #### [address] [address] A1Con 06-07-2023 HbA1c (Bld) [Mass fraction] 5.3 % Normal 4.3-6.4 [facility] ([place]) Comment on above: Performed By: #### G FR, LIPID, CBC, A1C, FT4, CMP, ADIFF, ANEU, PSA, TSH #### [address] [address] CBCon 06-07-2023 Erythrocyte distribution width (RBC) [Ratio] 13.4 % Normal 11.5-14.5 [facility] ([place]) Comment on above: Performed By: #### G FR, LIPID, CBC, A1C, FT4, CMP, ADIFF, ANEU, PSA, TSH #### [address] [address] Hematocrit (Bld) [Volume fraction] 41.6 % Low 42.0-52.0 [facility] ([place]) Comment on above: Performed By: #### G FR, LIPID, CBC, A1C, FT4, CMP, ADIFF, ANEU, PSA, TSH #### [place] [address] Hgb 14.4 G/dL Normal 14.0-18.0 [facility] ([place]) Comment on above: Performed By: #### G FR, LIPID, CBC, A1C, FT4, CMP, ADIFF, ANEU, PSA, TSH #### [address] [address] MCH (RBC) [Entitic mass] 31.9 pg High 27.0-31.2 [facility] ([place]) Comment on above: Performed By: #### G FR, LIPID, CBC, A1C, FT4, CMP, ADIFF, ANEU, PSA, TSH #### [address] [address] MCHC 34.6 G/dL Normal 31.8-35.4 [facility] ([place]) Comment on above: Performed By: #### G FR, LIPID, CBC, A1C, FT4, CMP, ADIFF, ANEU, PSA, TSH #### [address] [address] MCV (RBC) [Entitic vol] 92.1 fL Normal 80.0-94.0 [facility] ([place]) Comment on above: Performed By: #### G FR, LIPID, CBC, A1C, FT4, CMP, ADIFF, ANEU, PSA, TSH #### [place] [id number] Platelet 224 10 3/mcL Normal 130-400 [facility] ([place]) Comment on above: Performed By: #### G FR, LIPID, CBC, A1C, FT4, CMP, ADIFF, ANEU, PSA, TSH #### [address] [address] Platelet mean volume (Bld) [Entitic vol] 7.9 fL Normal 7.4-10.4 [facility] ([place]) Comment on above: Performed By: #### G FR, LIPID, CBC, A1C, FT4, CMP, ADIFF, ANEU, PSA, TSH #### [address] [address] RBC 4.51 10 6/mcL Normal 4.04-6.13 [facility] ([place]) Comment on above: Performed By: #### G FR, LIPID, CBC, A1C, FT4, CMP, ADIFF, ANEU, PSA, TSH #### [address] [address] WBC 6.0 10 3/mcL Normal 4.6-10.8 [facility] ([place]) Comment on above: Performed By: #### G FR, LIPID, CBC, A1C, FT4, CMP, ADIFF, ANEU, PSA, TSH #### [address] [address] CMPon 06-07-2023 Albumin Level 4.0 G/dL Normal 3.4-4.8 [facility] ([place]) Comment on above: Performed By: #### DAVE CORTEZRO #### [address] [address] #### STGIPCR #### [address] [address] Albumin/Globulin [Mass ratio] 1.1 {ratio} Normal 1.1-2.5 [facility] ([place]) Comment on above: Performed By: #### DAVE CORTEZRO #### [address] [address] #### STGIPCR #### [address] [address] ALP [Catalytic activity/Vol] 55 U/L Normal 40-135 [facility] ([place]) Comment on above: Performed By: #### Vicky STOREY CALPRO #### [place] [id number] #### STGIPCR #### [address] [address] ALT [Catalytic activity/Vol] 22 U/L Normal 16-63 [facility] ([place]) Comment on above: Performed By: #### Vicky STOREY CALPRO #### [place] [address] #### STGIPCR #### [place] [id number] AST [Catalytic activity/Vol] 17 U/L Normal 10-40 [facility] ([place]) Comment on above: Performed By: #### Vicky STOREY CALPRO #### [place] [address] #### STGIPCR #### [address] [address] Bili Total 0.6 mg/dL Normal 0.2-1.0 [facility] ([place]) Comment on above: Result Comment: Use of this assay is not recommended for patients undergoing treatment with eltrombopag due to the potential for falsely elevated results. Performed By: #### Vicky STOREY CALPRO #### [place] [address] #### STGIPCR #### [place] [id number] BUN/Creatinine Ratio 16 ratio Normal 7-27 [facility] ([place]) Comment on above: Performed By: #### Vicky STOREY CALPRO #### [place] [id number] #### STGIPCR #### [address] [address] Calcium [Mass/Vol] 9.7 mg/dL Normal 8.4-10.2 [facility] ([place]) Comment on above: Performed By: #### C DIFFAO, CALPRO #### [address] [address] #### STGIPCR #### [address] [address] Chloride [Moles/Vol] 102 mmol/L Normal 98-107 [facility] ([place]) Comment on above: Performed By: #### C DIFFAO, CALPRO #### [place] [address] #### STGIPCR #### [address] [address] CO2 [Moles/Vol] 27 mmol/L Normal 23-31 [facility] ([place]) Comment on above: Performed By: #### C DIFFAO, CALPRO #### [place] [address] #### STGIPCR #### [place] [address] Creatinine [Mass/Vol] 1.10 mg/dL Normal 0.70-1.30 [facility] ([place]) Comment on above: Performed By: #### C DIFFJENISE, CALPRO #### [place] [address] #### STGIPCR #### [place] [address] Electrolyte Balance 9.0 mEq/L Normal 4.0-15.0 [facility] ([place]) Comment on above: Performed By: #### C DIFFAO, CALPRO #### [place] [id number] #### STGIPCR #### [place] [address] Globulin 3.7 G/dL Normal [facility] ([place]) Comment on above: Performed By: #### C DIFFAO, CALPRO #### [place] [id number] #### STGIPCR #### [place] [address] Glucose [Mass/Vol] 100 mg/dL Normal 83-110 [facility] ([place]) Comment on above: Performed By: #### C CORDELIA, CALPRO #### [address] [address] #### STGIPCR #### [facility] [address] [place] [address] Potassium [Moles/Vol] 4.9 mmol/L Normal 3.5-5.1 [facility] ([place]) Comment on above: Performed By: #### C DIFFAO, CALPRO #### [address] [address] #### STGIPCR #### [address] [address] Sodium [Moles/Vol] 138 mmol/L Normal 136-145 [facility] ([place]) Comment on above: Performed By: #### C CORDELIA, CALPRO #### [place] [address] #### STGIPCR #### [address] [address] Total Protein 7.7 G/dL Normal 6.4-8.2 [facility] ([place]) Comment on above: Performed By: #### C DIFFJENISE, CALPRO #### [place] [address] #### STGIPCR #### [address] [address] Urea nitrogen [Mass/Vol] 18 mg/dL Normal 7-18 [facility] ([place]) Comment on above: Performed By: #### C DIFFAO, CALPRO #### [place] [address] #### STGIPCR #### [address] [address] FT4on 06-07-2023 Free T4 [Mass/Vol] 1.10 ng/dL Normal 0.76-1.46 [facility] ([place]) Comment on above: Performed By: #### C DIFFAO, CALPRO #### [address] [address] #### STGIPCR #### [address] [address] LIPIDon 06-07-2023 Cholesterol [Mass/Vol] 168 mg/dL Normal 0-200 [facility] ([place]) Comment on above: Result Comment: Chol esterol Reference Interval: Less than 200 Desirable 200-239 Borderline high risk 240 and above High risk Performed By: #### C CORDELIA, CALPRO #### [address] [address] #### STGIPCR #### [address] [address] Cholesterol in HDL [Mass/Vol] 62 mg/dL High 40-60 [facility] ([place]) Comment on above: Performed By: #### C CORDELIA, CALPRO #### [place] [address] #### STGIPCR #### [address] [address] Cholesterol in LDL [Mass/Vol] 90 mg/dL Normal 0-130 [facility] ([place]) Comment on above: Performed By: #### C CORDELIA, CALPRO #### [address] [address] #### STGIPCR #### [address] [address] Triglyceride [Mass/Vol] 79 mg/dL Normal 0-150 [facility] ([place]) Comment on above: Result Comment: Trig lyceride Reference Interval: Less than 150 Normal 150-199 Borderline high risk 200-499 High risk 500 or higher Very high risk Performed By: #### C CORDELIA, CALPRO #### [address] [address] #### STGIPCR #### [address] [address] MALBRon 06-07-2023 U Creatinine 110.4 mg/dL Normal 39.0-259.0 [facility] ([place]) Comment on above: Performed By: #### M ALBR #### [address] [address] U Microalb 7391 mcg/dL Normal [facility] ([place]) Comment on above: Performed By: #### M ALBR #### [address] [address] U Ratio Alb/Cre 67 mcg/mg High 0-30 [facility] ([place]) Comment on above: Performed By: #### M ALBR #### [address] [address] PSAon 06-07-2023 Prostate Specific Antigen 1.91 ng/mL Normal 0.00-4.00 [facility] ([place]) Comment on above: Performed By: #### G FR, LIPID, CBC, A1C, FT4, CMP, ADIFF, ANEU, PSA, TSH #### [address] [address] TSHon 06-07-2023 TSH Qn 1.67 m[IU]/L Normal 0.36-3.74 [facility] ([place]) Comment on above: Performed By: #### C CORDELIA, CALPRO #### [address] [address] #### STGIPCR #### [place] [address] LABORATORYOrdered By: Sandra Lemus on 06-27-2022 Creatinine (U) [Mass/Vol] 138.2 mg/dL Invalid Interpretation Code AH ADM SS Protein (U) [Mass/Vol] [address] mcg/dL Invalid Interpretation Code AH ADM SS U Ratio Alb/Cre 97.7 mcg/mg Invalid Interpretation Code 0.0 - 16.9 mcg/mg AH ADM SS LABORATORYOrdered By: Kelsi Bingham on 06-27-2022 Albumin BCP dye [Mass/Vol] 3.7 G/dL Invalid Interpretation Code 3.4 - 4.8 G/dL AO ADM SS Albumin/Globulin [Mass ratio] 1.1 {ratio} Invalid Interpretation Code 1.1 - 2.5 ratio AO ADM SS ALP [Catalytic activity/Vol] 62 U/L Invalid Interpretation Code 40 - 135 U/L AO ADM SS ALT With P-5'-P [Catalytic activity/Vol] 21 U/L Invalid Interpretation Code 16 - 63 U/L AO ADM SS AST With P-5'-P [Catalytic activity/Vol] 23 U/L Invalid Interpretation Code 10 - 40 U/L AO ADM SS Basophil, Absolute 0.1 103/mcL Invalid Interpretation Code 0.0 - 0.2 10^3/mcL AO Workflow SS Basophils/100 WBC (Bld) 1.5 % Invalid Interpretation Code 0.0 - 2.5 % AO Workflow SS Bilirubin [Mass/Vol] 0.6 mg/dL Invalid Interpretation Code 0.2 - 1.0 mg/dL AO ADM SS Calcium [Mass/Vol] 9.4 mg/dL Invalid Interpretation Code 8.4 - 10.2 mg/dL AO ADM SS Chloride [Moles/Vol] 101 mmol/L Invalid Interpretation Code 98 - 107 mmol/L AO ADM SS Cholesterol [Mass/Vol] 151 mg/dL Invalid Interpretation Code 0 - 200 mg/dL AO ADM SS Cholesterol in HDL [Mass/Vol] 65 mg/dL Invalid Interpretation Code 40 - 60 mg/dL AO ADM SS Cholesterol in LDL [Mass/Vol] 72 mg/dL Invalid Interpretation Code 0 - 130 mg/dL AO ADM SS CO2 [Moles/Vol] 29 mmol/L Invalid Interpretation Code 23 - 31 mmol/L AO ADM SS Creatinine [Mass/Vol] 1.10 mg/dL Invalid Interpretation Code 0.70 - 1.30 mg/dL AO ADM SS Electrolyte Balance 8.0 mEq/L Invalid Interpretation Code 4.0 - 15.0 mEq/L AO ADM SS Eosinophil, Absolute 0.3 103/mcL Invalid Interpretation Code 0.0 - 0.4 10^3/mcL AO Workflow SS Eosinophils/100 WBC (Bld) 4.3 % Invalid Interpretation Code 0.0 - 7.0 % AO Workflow SS Erythrocyte distribution width (RBC) [Ratio] 13.6 % Invalid Interpretation Code 11.5 - 14.5 % AO Workflow SS Free T4 [Mass/Vol] 1.20 ng/dL Invalid Interpretation Code 0.76 - 1.46 ng/dL AO ADM SS Globulin 3.4 G/dL Invalid Interpretation Code AO ADM SS Glucose [Mass/Vol] 99 mg/dL Invalid Interpretation Code 83 - 110 mg/dL AO ADM SS HbA1c (Bld) [Mass fraction] 5.5 % Invalid Interpretation Code 4.3 - 6.4 % AO ADM SS Hematocrit (Bld) [Volume fraction] 40.7 % Invalid Interpretation Code 42.0 - 52.0 % AO Workflow SS Hemoglobin (Bld) [Mass/Vol] 14.2 G/dL Invalid Interpretation Code 14.0 - 18.0 G/dL AO Workflow SS Lymphocyte, Absolute 1.6 103/mcL Invalid Interpretation Code 0.8 - 3.9 10^3/mcL AO Workflow SS Lymphocytes/100 WBC (Bld) 25.7 % Invalid Interpretation Code 10.0 - 50.0 % AO Workflow SS MCH (RBC) [Entitic mass] 31.7 pg Invalid Interpretation Code 27.0 - 31.2 pg AO Workflow SS MCHC 34.8 G/dL Invalid Interpretation Code 31.8 - 35.4 G/dL AO Workflow SS MCV (RBC) [Entitic vol] 90.9 fL Invalid Interpretation Code 80.0 - 94.0 fL AO Workflow SS Monocyte, Absolute 0.7 103/mcL Invalid Interpretation Code 0.2 - 1.0 10^3/mcL AO Workflow SS Monocytes/100 WBC (Bld) 10.4 % Invalid Interpretation Code 1.7 - 13.0 % AO Workflow SS Neutrophil, Absolute 3.7 103/mcL Invalid Interpretation Code 2.9 - 6.2 10^3/mcL AO Workflow SS Neutrophils/100 WBC (Bld) 58.1 % Invalid Interpretation Code 37.0 - 80.0 % AO Workflow SS Platelet mean volume (Bld) [Entitic vol] 7.2 fL Invalid Interpretation Code 7.4 - 10.4 fL AO Workflow SS Platelets (Bld) [#/Vol] 270 103/mcL Invalid Interpretation Code 130 - 400 10^3/mcL AO Workflow SS Potassium [Moles/Vol] 4.6 mmol/L Invalid Interpretation Code 3.5 - 5.1 mmol/L AO ADM SS Prostate specific Ag [Mass/Vol] 2.25 ng/mL Invalid Interpretation Code 0.00 - 4.00 ng/mL AO ADM SS Protein [Mass/Vol] 7.1 G/dL Invalid Interpretation Code 6.4 - 8.2 G/dL AO ADM SS RBC (Bld) [#/Vol] 4.48 106/mcL Invalid Interpretation Code 4.04 - 6.13 10^6/mcL AO Workflow SS Sodium [Moles/Vol] 138 mmol/L Invalid Interpretation Code 136 - 145 mmol/L AO ADM SS Triglyceride [Mass/Vol] 68 mg/dL Invalid Interpretation Code 0 - 150 mg/dL AO ADM SS TSH Qn 1.18 m[IU]/L Invalid Interpretation Code 0.36 - 3.74 mcIU/mL AO ADM SS Urea nitrogen [Mass/Vol] 16 mg/dL Invalid Interpretation Code 7 - 18 mg/dL AO ADM SS Urea nitrogen/Creatinine [Mass ratio] 15 ratio Invalid Interpretation Code 7 - 27 ratio AO ADM SS WBC 6.4 103/mcL Invalid Interpretation Code 4.6 - 10.8 10^3/mcL AO Workflow SS LABORATORYOrdered By: SYSTEM SYSTEM on 06-27-2022 GFR 79 ml/min/1.73sqm Invalid Interpretation Code AO Chemistry S GFR Non- 65 ml/min/1.73sqm Invalid Interpretation Code AO Chemistry S VL Venous Duplex US Lower Ex t Lefton 10-04-2021 VL Venous Duplex US Lower Ext Left Patient Name: JEAN BLACKMON Ultrasound ACCESSION EXAM DATE/TIME PROCEDURE ORDERING PROVIDER [id number] 10/04/2021 13:18 EST VL Venous Duplex US MAHENDRA VELEZ JOHN M Lower Ext Left CPT code 66036 Reason For Exam (VL Venous Duplex US Lower Ext Left) Pain in left leg Report [facility] ----- Left Lower Extremity Venous Duplex Report Patient Jean Blackmon : 1945 Study 10/04/2021 Name: Tony (76yrs) Date: Patient [id number] Age: 76 Account: [id number] ID: Gender: M Loc: BP: Ordering Physician: Radhames Velez Batcher Operator: Kaitlynn Ceja RDMS, RVT Interpreting Physician: Alysa Martell MD ----- Location: [facility] Dept at [place] ----- Indications: Pain left thigh. ----- Conclusions 1. There is no evidence of acute deep or superficial venous thrombosis noted in the left lower extremity. 2. The right common femoral vein fully compresses and demonstrates normal venous flow. ----- History: Left lower extremity pain in mid calf x 3 weeks then pain imid thigh which radiates to left hip and knee x 2 weeks. Risk factors: Patient history of left greater saphenous vein removed for heart bypass surgery x 9 years ago. Hypertension. Obese. Hyperlipidemia. ----- Study data: Left lower extremity venous duplex evaluation. Grayscale 2D imaging, color Doppler imaging, and spectral Doppler analysis. Location: Vascular laboratory. Procedure: A vascular evaluation was Ultrasound Report performed with the patient in the supine position. Images were obtained using a Bayard i700 [employer] vascular ultrasound machine. ----- Venous flow and imaging: + ----+-------+--------- ----+ +Location +Overall+Properties + + ----+-------+--------- ----+ +L CFV +Patent +Normal phasicity; spontaneous; + + + +normal augmentation; compressible + + ----+-------+--------- ----+ +L saphenofemoral junction+Patent +Compressible + + ----+-------+--------- ----+ +L profunda femoral +Patent +Normal phasicity; spontaneous; + + + +normal augmentation + + ----+-------+--------- ----+ +L FV - prox. +Patent +Compressible + + ----+-------+--------- ----+ +L FV - mid +Patent +Normal phasicity; spontaneous; + + + +normal augmentation; compressible + + ----+-------+--------- ----+ +L FV - distal +Patent +Compressible + + ----+-------+--------- ----+ +L popliteal +Patent +Normal phasicity; spontaneous; + + + +normal augmentation; compressible + + ----+-------+--------- ----+ +L gastrocnemius +Patent +Compressible + + ----+-------+--------- ----+ +L PTV +Patent +Compressible + + ----+-------+--------- ----+ +L peroneal +Patent +Compressible + + ----+-------+--------- ----+ +L soleal +Patent +Compressible + + ----+-------+--------- ----+ +L GSV +Patent +Compressible + + ----+-------+--------- ----+ +L SSV +Patent +Compressible + + ----+-------+--------- ----+ +R CFV +Patent +Normal phasicity; spontaneous; + + + +normal augmentation; compressible + + ----+-------+--------- ----+ Prepared and electronically signed by Alysa Martell MD 10/05/2021 13:27 Final Dictated: 10/05/2021 1:27 pm Dictating Physician: ALYSA MARTELL Signed Date and Time: 10/05/2021 1:27 pm Signed by: ALYSA MARTELL Cardiovascular ACCESSION EXAM DATE/TIME PROCEDURE [id number] 10/04/2021 13:18 EST VL Venous Duplex US Lower Ext Left Cardiovascular CPT code 35157 Reason For Exam (VL Venous Duplex US Lower Ext Left) Pain in left leg Report [facility] ----- Left Lower Extremity Venous Duplex Report Patient Jean Blackmon : 1945 Study 10/04/2021 Name: Theodor (more content not included)... Normal [facility] ED Provider Noteon ED Provider Note [facility] ED EMERGENCY DEPARTMENT ENCOUNTER Pt Name: Jean Blackmon Birthdate 1945 Date of evaluation: 10/03/2021 Provider: OSMIN Germain CHIEF COMPLAINT Chief Complaint Patient presents with ? Leg Pain left lateral thigh HISTORY OF PRESENT ILLNESS (Location/Symptom, Timing/Onset, Context/Setting, Quality,Duration, Modifying Factors, Severity) Note limiting factors. HPI I have seen this patient With supervising physician Does this patient come from an ECF, SNF, Rehab, Long-Term or other Congregate setting: no (If yes to above patient needs a Covid-19 test) Jean Blackmon is a 76 y.o. male who presents to the emergency department for chief complaint of left leg pain has been going on for nearly 10 days which she states started within his calf and now is gone to his thigh. Patient states this happened before when he had a vein removed from his leg for graft. Patient denies any recent travel, trauma, surgery. No history of pulmonary embolism or DVT according to the patient. He denies any trauma or recent falls. He denies any paresthesias in his distal leg. Patient has no other complaints this time. He rates the pain 6 out of 10 aching pain worse with movement. I wore a N95 during the entire visit REVIEW OF SYSTEMS (2+ for level 4; 10+ for level 5) Review of Systems Constitutional: Negative for chills, fatigue and fever. HENT: Negative for congestion, sinus pain, sore throat and voice change. Eyes: Negative. Respiratory: Negative for cough, shortness of breath and wheezing. Cardiovascular: Negative for chest pain, palpitations and leg swelling. Gastrointestinal: Negative for abdominal distention, abdominal pain, blood in stool, constipation, diarrhea, nausea and vomiting. Endocrine: Negative. Genitourinary: Negative for dysuria, frequency and hematuria. Musculoskeletal: Positive for myalgias. Negative for arthralgias and neck stiffness. Skin: Negative for color change, pallor, rash and wound. Neurological: Negative for dizziness, weakness, light-headedness, numbness and headaches. Psychiatric/Behavioral : Negative. PAST MEDICAL HISTORY Past Medical History: Diagnosis Date ? CAD (coronary artery disease) ? Diabetes mellitus (HCC) type 2, NIDDM ? Hypercholesteremia ? Hypercholesteremia ? Hypertension SURGICAL HISTORY Past Surgical History: Procedure Laterality Date ? CARDIAC SURGERY 05/2013 double bypass CURRENT MEDICATIONS There are no discharge medications for this patient. ALLERGIES Sulfa antibiotics FAMILY HISTORY History reviewed. No pertinent family history. SOCIAL HISTORY Social History Socioeconomic History ? Marital status: Spouse name: None ? Number of children: None ? Years of education: None ? Highest education level: None Occupational History ? None Tobacco Use ? Smoking status: Never Smoker ? Smokeless tobacco: Never Used Vaping Use ? Vaping Use: Never used Substance and Sexual Activity ? Alcohol use: Yes Alcohol/week: 1.0 standard drink Types: 1 Cans of beer per week ? Drug use: Never ? Sexual activity: Yes Partners: Female Other Topics Concern ? None Social History Narrative ? None Social Determinants of Health Financial Resource Strain: ? Difficulty of Paying Living Expenses: Not on file Food Insecurity: ? Worried About Running Out of Food in the Last Year: Not on file ? Ran Out of Food in the Last Year: Not on file Transportation Needs: ? Lack of Transportation (Medical): Not on file ? Lack of Transportation (Non-Medical): Not on file Physical Activity: ? Days of Exercise per Week: Not on file ? Minutes of Exercise per Session: Not on file Stress: ? Feeling of Stress : Not on file Social Connections: ? Frequency of Communication with Friends and Family: Not on file ? Frequency of Social Gatherings with Friends and Family: Not on file ? Attends Caodaism Services: Not on file ? Active Member of Clubs or Organizations: Not on file ? Attends Club or Organization Meetings: Not on file ? Marital Status: Not on file Intimate Partner Violence: ? Fear of Current or Ex-Partner: Not on file ? Emotionally Abused: Not on file ? Physically Abused: Not on file ? Sexually Abused: Not on file Housing Stability: ? Unable to Pay for Housing in the Last Year: Not on file ? Number of Places Lived in the Last Year: Not on file ? Unstable Housing in the Last Year: Not on file SCREENINGS PHYSICAL EXAM (up to 7 forlevel 4, 8 or more for level 5) ED Triage Vitals [10/03/212034] BP Temp Temp Source Pulse Resp SpO2 Height Weight (!) 164/82 98.7 ?F (37.1 ?C) Temporal 81 16 96 % -- 195 lb (88.5 kg) Physical Exam Constitutional: General: He is not in acute distress. Appearance: He is well-developed. He is not diaphoretic. HENT: Head: Normocephalic. Eyes: General: No scleral icterus. Right eye: No discharge. Left eye: No (more content not included)... Normal [facility] ED Provider Note Patient, Jean Blackmon, is seen and examined in conjunction with advanced practice practitioner. I independently performed history, physical exam, admitted all diagnostic treatment and disposition decisions. I wore a surgical mask for the entirety of this encounter. In brief their history revealed 76-year-old male complaining of left leg pain. He had pain in the left leg started in the calf that radiated towards the thigh. Is been present for about 10 days. It seems to be getting worse. He has have a history of bypass graft of this extremity and it seems to be occurring around the site of this. No history of DVT or PE in the past. Denies any other symptoms. Their focused exam: GENERAL: Awake, alert, no apparent distress HEENT: Atraumatic, normocephalic. PERRL. EOMI. NECK: Trachea midline. Supple. CV: Regular rate and rhythm, no murmurs, rubs or gallops RESPIRATORY: Clear breath sounds bilaterally. No respiratory distress. No accessory muscle use. GI: Abdomen soft, nontender throughout. No rigidity, rebound or guarding. NEURO: Alert and oriented x 3. Follows commands. Normal motor and sensation throughout. No focal deficits. EXTREMITIES: Left lower extremity without any posterior calf tenderness. There is no swelling. Normal range of motion. Normal strength. PSYCH: Normal mood and affect ED course: 76-year-old male presented for left leg pain. Vital signs reviewed. Exam nonfocal. There is consideration for DVT. We discussed the risk for DVT and clinical concern for this with the patient. We discussed that we do not have ultrasound available to rule this out at this time however he could come back tomorrow for a DVT ultrasound. We discussed the risks and benefits of anticoagulating the patient in the meantime. After a lengthy discussion regarding the risks and benefits, he felt comfortable receiving a dose of Lovenox which was provided. To be discharged with instructions to return for DVT study tomorrow. All diagnostic, treatment, and disposition decisions were made by myself in conjunction with the mid-level provider. For all further details of the patient's emergency department visit, please see the advance practice provider's documentation. Charlie Mcgill, 10/04/21 1002 Normal [facility] Vital Signs Date Time Vital Sign Value Performing Clinician Manish [email or web address] 11-22-2023 09:35-0500 Diastolic Blood Pressure Non-Invasive 84 mm[Hg] DR CLYDE MAGDALENO MD [facility] 11-22-2023 09:35-0500 Heart rate 64 /min DR CLYDE MAGDALENO MD [facility] 11-22-2023 09:35-0500 Respiratory rate 22 /min DR CLYDE MAGDALENO MD [facility] 11-22-2023 09:35-0500 Systolic Blood Pressure Non-Invasive 123 mm[Hg] DR CLYDE MAGDALENO MD [facility] 11-22-2023 09:30-0500 Diastolic Blood Pressure Non-Invasive 80 mm[Hg] DR CLYDE MAGDALENO MD [facility] 11-22-2023 09:30-0500 Heart rate 64 /min DR CLYDE MAGDALENO MD [facility] 11-22-2023 09:30-0500 Respiratory rate 24 /min DR CLYDE MAGDALENO MD [facility] 11-22-2023 09:30-0500 Systolic Blood Pressure Non-Invasive 122 mm[Hg] DR CLYDE MAGDALENO MD [facility] 11-22-2023 09:25-0500 Diastolic Blood Pressure Non-Invasive 73 mm[Hg] DR CLYDE MAGDALENO MD [facility] 11-22-2023 09:25-0500 Heart rate 72 /min DR CLYDE MAGDALENO MD [facility] 11-22-2023 09:25-0500 Respiratory rate 18 /min DR CLYDE MAGDALENO MD [facility] 11-22-2023 09:25-0500 Systolic Blood Pressure Non-Invasive 104 mm[Hg] DR CLYDE MAGDALENO MD [facility] 11-22-2023 09:10-0500 Respiratory Rate - Anes 23 br/min DR CLYDE MAGDALENO MD [facility] 11-22-2023 09:05-0500 Respiratory Rate - Anes 29 br/min DR CLYDE MAGDALENO MD [facility] 11-22-2023 09:00-0500 Respiratory Rate - Anes 48 br/min DR CLYDE MAGDALENO MD [facility] 11-22-2023 08:15-0500 Body height 172.[address] CLYDE MAGDALENO MD [facility] 11-22-2023 08:15-0500 Body weight [address] CLYDE MAGDALENO MD [facility] 11-22-2023 08:15-0500 Body weight 28.5 kg/m2 DR CLYDE MAGDALENO MD [facility] 11-22-2023 08:06-0500 Body height 172.[address] CLYDE MAGDALENO MD [facility] 11-22-2023 08:06-0500 Body temperature 97.7 [degF] DR CLYDE MAGDALENO MD [facility] 11-22-2023 08:06-0500 Body weight [address] CLYDE MAGDALENO MD [facility] 11-22-2023 08:06-0500 Heart rate 88 /min DR CLYDE MAGDALENO MD [facility] Encounters Encounter Date Encounter Type Care Provider Facility Start: 06-28-2024 End: 06-28-2024 ambulatory [place] Dasiakarely Facility:[facility] Start: 06-28-2024 End: 06-28-2024 [facility] Start: 11-22-2023 End: 11-22-[address] CLYDE MAGDALENO MD Facility:[facility] Start: 11-22-2023 End: 11-22-[address] CLYDE MAGDALENO MD [facility] Start: 08-18-2023 ambulatory VON TOBIN DO Faci lity:B Start: 08-18-2023 End: 2023 Outreach Lab VON TOBIN DO [facility] Start: 06-07-2023 End: 06-08-2023 ambulatory VON TOBIN DO Facility:[facility] Start: 06-27-2022 End: 07-01-2022 Outreach Lab VON TOBIN DO [facility] Start: 06-27-2022 End: 06-27-2022 Patient encounter procedure VON TOBIN DO [facility] Procedures Date Procedure Procedure Detail Performing Clinician Start: 11-01-2013 Bone structure of patella (body structure) VON TOBIN DO Comment on above: left Start: 05-01-2013 Construction of shunt S DIEGO TOBIN DO Start: 11-01-2010 Bone structure of patella (body structure) VON TOBIN DO Cataract (morphologi c abnormality) VON TOBIN DO History of coronary artery bypass grafting S/P CABG x 2( Confirmed ) VON TOBIN DO Immunizations Immunization Date Immunization Notes Care Provider Marivel willoughby 04-15-2021 SARS-CoV-2 mRNA (tozinameran) vaccine VON TOBIN DO [facility] 03-25-2021 SARS-CoV-2 mRNA (tozinameran) vaccine VON TOBIN DO [facility] 04-17-2013 tetanus toxoid, redu blaise diphtheria toxoid, and acellular pertussis vaccine, adsorbed VON TOBIN DO [facility] Payers Date Payer Category Payer Self-pay 2024 Private Health Insurance [id number] 2023 Private Health Insurance [id number] 2023 Medicare [id number] 1945 Unknown [id number] [id number] 1945 Unknown [id number] [id number] [id number] 1945 Unknown [id number] [id number] [id number] Unknown [id number] 2.16.8 [id number] Unknown [id number] 2.16.8 [id number] Social History Date Type Detail Facility Start: 03-28-2020 Tobacco smoking status Never s moked tobacco (finding) [facility] Sex Assigned At Male [facility] Functional Status Date Assessment Result Facility 11-22-2023 Functional Status Maintained [facility] Mental Status Date Assessment Result Facility 11-22-2023 [facility] 11-22-[address] [facility] Clinical Notes 11-22-2023 Note Date & Type Note Facility 11-22-2023 Evaluation + Plan note Extrac xin from: Title:Clinical Document Author:CLYDE MAGDALENO Date:11/22/23 SIDNEY ADMISSION HISTORY AN D PHYSICIAL CHIEF COMPLAINT: HISTORY OF PRESENT ILLNESS: REVIEW OF SYSTEMS: ACTIVE PROBLEMS: (14) COVID-19 vaccination declined (4718326029) Diarrhea (966954308) Essential hypertension (90504166) Full code status (557215212) Grade A1 albuminuria (8057268830) Pneumococcal vaccination declined by patient (9169779205) Pure hypercholesterolemia (231393538) Refused influenza vaccine (599022812) S/P CABG x 2 (9602857881) Sinus arrhythmia (354484492) Systolic murmur (13762525) Type 2 diabetes mellitus with albuminuria (420240451) Type 2 diabetes mellitus with cardiac complication (689399035) Type 2 diabetes mellitus with hyperlipidemia (429988483) MEDICATIONS: Active Inpt Meds: None Active PRN Meds: None One Time Meds: None Active IV Meds: Lactated Ringers Infusion 1,000 mL (LR 1,000 mL) Start: 11/22/23 8:01:00 EST, Rate: 50 mL/hr, 11/22/23 8:01:00 EST ALLERGIES: (1) sulfa FAMILY HISTORY: SOCIAL HISTORY: PHYSICAL EXAM: VITALS: [id number](kg) 11/22 08:0636.5--[id number]/22 85.0 11/22 85.0 24 Hr Tmax: 36.5 at 11/22 08:06 36 Hr Tmax: 36.5 at 11/22 08:06 Vital Signs are the last 5 in the past 48 hours. Weights display the last 5 within 7 days. Initial Wt: 11/22 85.0 kg 187 lb Current Wt: 11/22 85.0 kg 187 lb GENERAL: HEENT: CARDIOVASCULAR: RESPIRATORY: ABDOMEN: EXREMETIES: NEUROLOGICAL: PSYCHIATRIC: LABS: 36hr Labs 11/22 0826 Blood Glucose, [id number] Blood Glucose, [id number] DIAGNOSTICS: IMPRESSION: PLAN: History and Physical Update I have examined the patient; reviewed the H&P and there are no changes to the H&P unless noted below. Future Appointments Appointment Date:01/31/2024 09:15:00 AM Scheduled Provider:VON TOBIN DO Location:[facility] Appointment Type:[facility] Appointment Date:01/31/2024 11:30:00 AM Scheduled Provider:VON TOBIN DO Location:[facility] Appointment Type:[facility] 01-22-2024 Hospital Discharge instructions Patient Education 11/22/2023 09:19:46 Nausea and Vomiting, Adult, [id number] Nausea and Vomiting, Adult Nausea is feeling sick to your stomach or feeling that you are about to throw up (vomit). Vomiting is when food in your stomach is thrown up and out of the mouth. Throwing up can make you feel weak. It can also make you lose too much water in your body (get dehydrated). If you lose too much water in your body, you may: Feel tired. Feel thirsty. Have a dry mouth. Have cracked lips. Go pee (urinate) less often. Older adults and people with other diseases or a weak body defense system (immune system) are at higher risk for losing too much water in the body. If you feel sick to your stomach and you throw up, it is important to follow instructions from your doctor about how to take care of yourself. Follow these instructions at home: Watch your symptoms for any changes. Tell your doctor about them. Follow these instructions to carefor yourself at home. Eating and drinking Take an ORS (oral rehydration solution). This is a drink that is sold at pharmacies and stores. Drink clear fluids in small amounts as you are able, such as: ?Water. ?Ice chips. ?Fruit juice that has water added (diluted fruit juice). ?Low-calorie sports drinks. Eat bland, xuqy-jb-gpuocf foods in small amounts as you are able, such as: ?Bananas. ?Applesauce. ?Rice. ?Low-fat (lean) meats. ?[place]. ?Crackers. Avoid drinking fluids that have a lot of sugar or caffeine in them. This includes energy drinks, sports drinks, and soda. Avoid alcohol. Avoid spicy or fatty foods. General instructions Take ftei-rls-dwmueob and prescription medicines only as told by your doctor. Drink enough fluid to keep your pee (urine) pale yellow. Wash your hands often with soap and water. If you cannot use soap and water, use hand veneer grader. Make sure that all people in your home wash their hands well and often. Rest at home while you get better. Watch your condition for any changes. Take slow and deep breaths when you feel sick to your stomach. Keep all follow-up visits as told by your doctor. This is important. Contact a doctor if: Your symptoms get worse. You have new symptoms. You have a fever. You cannot drink fluids without throwing up. You feel sick to your stomach for more than 2 days. You feel light-headed or dizzy. You have a headache. You have muscle cramps. You have a rash. You have pain while peeing. Get help right away if: You have pain in your chest, neck, arm, or jaw. You feel very weak or you pass out (faint). You throw up again and again. You have throw up that is bright red or looks like black coffee grounds. You have bloody or black poop (stools) or poop that looks like tar. You have a very bad headache, a stiff neck, or both. You have very bad pain, cramping, or bloating in your belly (abdomen). You have trouble breathing. You are breathing very quickly. Your heart is beating very quickly. Your skin feels cold and clammy. You feel confused. You have signs of losing too much water in your body, such as: ?Dark pee, very little pee, or no pee. ?Cracked lips. ?Dry mouth. ?Sunken eyes. ?Sleepiness. ?Weakness. These symptoms may be an emergency. Do not wait to see if the symptoms will go away. Get medical help right away. Call your local emergency services (911 in the [place] Do not drive yourself to the hospital. Summary Nausea is feeling sick to your stomach or feeling that you are about to throw up (vomit). Vomiting is when food in your stomach is thrown up and out of the mouth. Follow instructions from your doctor about eating and drinking to keep from losing too much water in your body. Take zebv-fke-rsuufeb and prescription medicines only as told by your doctor. Contact your doctor if your symptoms get worse or you have new symptoms. Keep all follow-up visits as told by your doctor. This is important. This information is not intended to replace advice given to you by your health care provider. Make sure you discuss any questions you have with your health care provider. Document Released: 04/05/2009 Document Revised: 02/09/2020 Document Reviewed: 03/28/2019 [employer] Patient Education 2020 [employer]. 11/22/2023 09:19:45 Monitored Anesthesia Care, Care After Monitored Anesthesia Care, Care After These instructions provide you with information about caring for yourself after your procedure. Your health care provider may also give you more specific instructions. Your treatment has been plannedaccording to current medical practices, but problems sometimes occur. Call your health care provider if you have any problems or questions after your procedure. What can I expect after the procedure? After your procedure, you may: Feel sleepy for several hours. Feel clumsy and have poor balance for several hours. Feel forgetful about what happened after the procedure. Have poor judgment for several hours. Feel nauseous or vomit. Have a sore throat if you had a breathing tube during the procedure. Follow these instructions at home: For at least 24 hours after the procedure: Have a responsible adult stay with you. It is important to have someone help care for you until youare awake and alert. Rest as needed. Do not: ?Participate in activities in which you could fall or become injured. ?Drive. ?Use heavy machinery. ?Drink alcohol. ?Take sleeping pills or medicines that cause drowsiness. ?Make important decisions or sign legal documents. ?Take care of children on your own. Eating and drinking Follow the diet that is recommended by your health care provider. If you vomit, drink water, juice, or soup when you can drink without vomiting. Make sure you have little or no nausea before eating solid foods. General instructions Take dfyv-eur-fbtdvuh and prescription medicines only as told by your health care provider. If you have sleep apnea, surgery and certain medicines can increase your risk for breathing problems. Follow instructions from your health care provider about wearing your sleep device: ?Anytime you are sleeping, including during daytime naps. ?While taking prescription pain medicines, sleeping medicines, or medicines that make you drowsy. If you smoke, do not smoke without supervision. Keep all follow-up visits as told by your health care provider. This is important. Contact a health care provider if: You keep feeling nauseous or you keep vomiting. You feel light-headed. You develop a rash. You have a fever. Get help right away if: You have trouble breathing. Summary For several hours after your procedure, you may feel sleepy and have poor judgment. Have a responsible adult stay with you for at least 24 hours or until you are awake and alert. This information is not intended to replace advice given to you by your health care provider. Make sure you discuss any questions you have with your health care provider. Document Released: 02/07/2017 Document Revised: 01/16/2019 Document Reviewed: 02/07/2017 [employer] Patient Education 2020 [employer] 11/22/2023 09:19:40 Colon Polyps Colon Polyps Polyps are tissue growths inside the body. Polyps can grow in many places, including the large intestine (colon). A polyp may be a round bump or a mushroom-shaped growth. You could have one polyp or several. Most colon polyps are noncancerous (benign). However, some colon polyps can become cancerous over time. Finding and removing the polyps early can help prevent this. What are the causes? The exact cause of colon polyps is not known. What increases the risk? You are more likely to develop this condition if you: Have a family history of colon cancer or colon polyps. Are older than 50 or older than 45 if you are . Have inflammatory bowel disease, such as ulcerative colitis or Crohn's disease. Have certain hereditary conditions, such as: ?Familial adenomatous polyposis. ?Sales syndrome. ?Turcot syndrome. ?Peutz Jeghers syndrome. Are overweight. Smoke cigarettes. Do not get enough exercise. Drink too much alcohol. Eat a diet that is high in fat and red meat and low in fiber. Had childhood cancer that was treated with abdominal radiation. What are the signs or symptoms? Most polyps do not cause symptoms. If you have symptoms, they may include: Blood coming from your rectum when having a bowel movement. Blood in your stool. The stool may look dark red or black. Abdominal pain. A change in bowel habits, such as constipation or diarrhea. How is this diagnosed? This condition is diagnosed with a colonoscopy. This is a procedure in which a lighted, flexible scope is inserted into the anus and then passed into the colon to examine the area. Polyps are sometimes found when a colonoscopy is done as part of routine cancer screening tests. How is this treated? Treatment for this condition involves removing any polyps that are found. Most polyps can be removed during a colonoscopy. Those polyps will then be tested for cancer. Additional treatment may be needed depending on the results of testing. Follow these instructions at home: Lifestyle Maintain a healthy weight, or lose weight if recommended by your health care provider. Exercise every day or as told by your health care provider. Do not use any products that contain nicotine or tobacco, such as cigarettes and e-cigarettes. If you need help quitting, ask your health care provider. If you drink alcohol, limit how much you have: ?0 1 drink a day for women. ? 0 2 drinks a day for men. Be aware of how much alcohol is in your drink. In the [place] one drink equals one 12 oz bottle of beer (355 mL), one 5 oz glass of wine (148 mL), or one 1 oz shot of hard liquor (44 mL). Eating and drinking Eat foods that are high in fiber, such as fruits, vegetables, and whole grains. Eat foods that are high in calcium and vitamin D, such as milk, cheese, yogurt, eggs, liver, fish, and broccoli. Limit foods that are high in fat, such as fried foods and desserts. Limit the amount of red meat and processed meat you eat, such as hot dogs, sausage, lindsey, and lunch meats. General instructions Keep all follow-up visits as told by your health care provider. This is important. ?This includes having regularly scheduled colonoscopies. ?Talk to your health care provider about when you need a colonoscopy. Contact a health care provider if: You have new or worsening bleeding during a bowel movement. You have new or increased blood in your stool. You have a change in bowel habits. You lose weight for no known reason. Summary Polyps are tissue growths inside the body. Polyps can grow in many places, including the colon. Most colon polyps are noncancerous (benign), but some can become cancerous over time. This condition is diagnosed with a colonoscopy. Treatment for this condition involves removing any polyps that are found. Most polyps can be removed during a colonoscopy. This information is not intended to replace advice given to you by your health care provider. Make sure you discuss any questions you have with your health care provider. Document Released: 07/14/2005 Document Revised: 02/02/2019 Document Reviewed: 02/02/2019 [employer] Patient Education [employer] Follow Up Care 11/12/2023 09:01:06 With:CLYDE MAGDALENO Address: [address] [phone] Business (1) When: Unknown Comments:NO MORE FOLLOW UP COLONOSCOPIES NEEDED [facility] 01-22-2024 Note Discharge Instructions Thank you for allowing [facility] to assist you with your healthcare needs. The following is importantdischarge information regarding your hospital visit. Your Care Team VON TOBIN DO, DR Your Diagnosis COLON POLYPS What to do next Instructions From Your Doctor NO DRIVING FOR 24 HOURS Scheduled Follow-Up Appointments Appointment Type When With Where Contact InformationPC OV 01/31/2024 09:15 AM VON PEDRO DO [address] [id number] PC OV 01/31/2024 11:30 AM VON PEDRO DO [address] [id number] Follow Up Appointments Follow Up with CLYDE MAGDALENO When Why: NO MORE FOLLOW UP COLONOSCOPIES NEEDED Where: [address] [place] [phone] Business (1) Allergies sulfa (Tongue swelling) Medications Please ask your primary doctor or pharmacist before taking any other medication not listed, including over the counter drugs, herbal medications, vitamins and or supplements as they may interact withyour home medications. What How Much When Why Instructions Last Dose Unchanged dicyclomine (dicyclomine 20 mg oral tablet) 1 tab(s) by mouth Four (4) times a day Diarrhea 30 to 60 minutes before meals Unchanged lisinopril (lisinopril 30 mg oral tablet) 1 tab(s) by mouth Once a day Unchanged pravastatin (pravastatin 40 mg oral tablet) 1 tab(s) by mouth Once a day Please take this list to your next doctor s visit. Bring all medications you take, including over the counter medications, herbals and other supplements with you to your doctor s visit. Patients and families are reminded to discard old lists and to update any records with all medication providers or retail pharmacies. Education Materials Nausea and Vomiting, Adult Nausea is feeling sick to your stomach or feeling that you are about to throw up (vomit). Vomiting is when food in your stomach is thrown up and out of the mouth. Throwing up can make you feel weak. It can also make you lose too much water in your body (get dehydrated). If you lose too much water in your body, you may: Feel tired. Feel thirsty. Have a dry mouth. Have cracked lips. Go pee (urinate) less often. Older adults and people with other diseases or a weak body defense system (immune system) are at higher risk for losing too much water in the body. If you feel sick to your stomach and you throw up, it is important to follow instructions from your doctor about how to take care of yourself. Follow these instructions at home: Watch your symptoms for any changes. Tell your doctor about them. Follow these instructions to carefor yourself at home. Eating and drinking Take an ORS (oral rehydration solution). This is a drink that is sold at pharmacies and stores. Drink clear fluids in small amounts as you are able, such as: ? Water. ? Ice chips. ? Fruit juice that has water added (diluted fruit juice). ? Low-calorie sports drinks. Eat bland, ghvf-uw-whjppk foods in small amounts as you are able, such as: ? Bananas. ? Applesauce. ? Rice. ? Low-fat (lean) meats. ? [place]. ? Crackers. Avoid drinking fluids that have a lot of sugar or caffeine in them. This includes energy drinks, sports drinks, and soda. Avoid alcohol. Avoid spicy or fatty foods. General instructions Take silx-chw-paewyyo and prescription medicines only as told by your doctor. Drink enough fluid to keep your pee (urine) pale yellow. Wash your hands often with soap and water. If you cannot use soap and water, use hand veneer grader. Make sure that all people in your home wash their hands well and often. Rest at home while you get better. Watch your condition for any changes. Take slow and deep breaths when you feel sick to your stomach. Keep all follow-up visits as told by your doctor. This is important. Contact a doctor if: Your symptoms get worse. You have new symptoms. You have a fever. You cannot drink fluids without throwing up. You feel sick to your stomach for more than 2 days. You feel light-headed or dizzy. You have a headache. You have muscle cramps. You have a rash. You have pain while peeing. Get help right away if: You have pain in your chest, neck, arm, or jaw. You feel very weak or you pass out (faint). You throw up again and again. You have throw up that is bright red or looks like black coffee grounds. You have bloody or black poop (stools) or poop that looks like tar. You have a very bad headache, a stiff neck, or both. You have very bad pain, cramping, or bloating in your belly (abdomen). You have trouble breathing. You are breathing very quickly. Your heart is beating very quickly. Your skin feels cold and clammy. You feel confused. You have signs of losing too much water in your body, such as: ? Dark pee, very little pee, or no pee. ? Cracked lips. ? Dry mouth. ? Sunken eyes. ? Sleepiness. ? Weakness. These symptoms may be an emergency. Do not wait to see if the symptoms will go away. Get medical help right away. Call your local emergency services (911 in the [place] Do not drive yourself to the hospital. Summary Nausea is feeling sick to your stomach or feeling that you are about to throw up (vomit). Vomiting is when food in your stomach is thrown up and out of the mouth. Follow instructions from your doctor about eating and drinking to keep from losing too much water in your body. Take bbfy-exr-xstubtp and prescription medicines only as told by your doctor. Contact your doctor if your symptoms get worse or you have new symptoms. Keep all follow-up visits as told by your doctor. This is important. This information is not intended to replace advice given to you by your health care provider. Make sure you discuss any questions you have with your health care provider. Document Released: 04/05/2009 Document Revised: 02/09/2020 Document Reviewed: 03/28/2019 [employer] Patient Education 2020 [employer]. Monitored Anesthesia Care, Care After These instructions provide you with information about caring for yourself after your procedure. Your health care provider may also give you more specific instructions. Your treatment has been plannedaccording to current medical practices, but problems sometimes occur. Call your health care provider if you have any problems or questions after your procedure. What can I expect after the procedure? After your procedure, you may: Feel sleepy for several hours. Feel clumsy and have poor balance for several hours. Feel forgetful about what happened after the procedure. Have poor judgment for several hours. Feel nauseous or vomit. Have a sore throat if you had a breathing tube during the procedure. Follow these instructions at home: For at least 24 hours after the procedure: Have a responsible adult stay with you. It is important to have someone help care for you until youare awake and alert. Rest as needed. Do not: ? Participate in activities in which you could fall or become injured. ? Drive. ? Use heavy machinery. ? Drink alcohol. ? Take sleeping pills or medicines that cause drowsiness. ? Make important decisions or sign legal documents. ? Take care of children on your own. Eating and drinking Follow the diet that is recommended by your health care provider. If you vomit, drink water, juice, or soup when you can drink without vomiting. Make sure you have little or no nausea before eating solid foods. General instructions Take cqqh-sqp-kpiodpm and prescription medicines only as told by your health care provider. If you have sleep apnea, surgery and certain medicines can increase your risk for breathing problems. Follow instructions from your health care provider about wearing your sleep device: ? Anytime you are sleeping, including during daytime naps. ? While taking prescription pain medicines, sleeping medicines, or medicines that make you drowsy. If you smoke, do not smoke without supervision. Keep all follow-up visits as told by your health care provider. This is important. Contact a health care provider if: You keep feeling nauseous or you keep vomiting. You feel light-headed. You develop a rash. You have a fever. Get help right away if: You have trouble breathing. Summary For several hours after your procedure, you may feel sleepy and have poor judgment. Have a responsible adult stay with you for at least 24 hours or until you are awake and alert. This information is not intended to replace advice given to you by your health care provider. Make sure you discuss any questions you have with your health care provider. Document Released: 02/07/2017 Document Revised: 01/16/2019 Document Reviewed: 02/07/2017 [employer] Patient Education 2020 [employer]. Colon Polyps Polyps are tissue growths inside the body. Polyps can grow in many places, including the large intestine (colon). A polyp may be a round bump or a mushroom-shaped growth. You could have one polyp or several. Most colon polyps are noncancerous (benign). However, some colon polyps can become cancerous over time. Finding and removing the polyps early can help prevent this. What are the causes? The exact cause of colon polyps is not known. What increases the risk? You are more likely to develop this condition if you: Have a family history of colon cancer or colon polyps. Are older than 50 or older than 45 if you are . Have inflammatory bowel disease, such as ulcerative colitis or Crohn's disease. Have certain hereditary conditions, such as: ? Familial adenomatous polyposis. ? Sales syndrome. ? Turcot syndrome. ? Peutz Jeghers syndrome. Are overweight. Smoke cigarettes. Do not get enough exercise. Drink too much alcohol. Eat a diet that is high in fat and red meat and low in fiber. Had childhood cancer that was treated with abdominal radiation. What are the signs or symptoms? Most polyps do not cause symptoms. If you have symptoms, they may include: Blood coming from your rectum when having a bowel movement. Blood in your stool. The stool may look dark red or black. Abdominal pain. A change in bowel habits, such as constipation or diarrhea. How is this diagnosed? This condition is diagnosed with a colonoscopy. This is a procedure in which a lighted, flexible scope is inserted into the anus and then passed into the colon to examine the area. Polyps are sometimes found when a colonoscopy is done as part of routine cancer screening tests. How is this treated? Treatment for this condition involves removing any polyps that are found. Most polyps can be removed during a colonoscopy. Those polyps will then be tested for cancer. Additional treatment may be needed depending on the results of testing. Follow these instructions at home: Lifestyle Maintain a healthy weight, or lose weight if recommended by your health care provider. Exercise every day or as told by your health care provider. Do not use any products that contain nicotine or tobacco, such as cigarettes and e-cigarettes. If you need help quitting, ask your health care provider. If you drink alcohol, limit how much you have: ? 0 1 drink a day for women. ? 0 2 drinks a day for men. Be aware of how much alcohol is in your drink. In the [place] one drink equals one 12 oz bottle of beer (355 mL), one 5 oz glass of wine (148 mL), or one 1 oz shot of hard liquor (44 mL). Eating and drinking Eat foods that are high in fiber, such as fruits, vegetables, and whole grains. Eat foods that are high in calcium and vitamin D, such as milk, cheese, yogurt, eggs, liver, fish, and broccoli. Limit foods that are high in fat, such as fried foods and desserts. Limit the amount of red meat and processed meat you eat, such as hot dogs, sausage, lindsey, and lunch meats. General instructions Keep all follow-up visits as told by your health care provider. This is important. ? This includes having regularly scheduled colonoscopies. ? Talk to your health care provider about when you need a colonoscopy. Contact a health care provider if: You have new or worsening bleeding during a bowel movement. You have new or increased blood in your stool. You have a change in bowel habits. You lose weight for no known reason. Summary Polyps are tissue growths inside the body. Polyps can grow in many places, including the colon. Most colon polyps are noncancerous (benign), but some can become cancerous over time. This condition is diagnosed with a colonoscopy. Treatment for this condition involves removing any polyps that are found. Most polyps can be removed during a colonoscopy. This information is not intended to replace advice given to you by your health care provider. Make sure you discuss any questions you have with your health care provider. Document Released: 07/14/2005 Document Revised: 02/02/2019 Document Reviewed: 02/02/2019 [employer] Patient Education 2020 [employer] Additional Information VACCINATE! IT SAVES LIVES! Members of the community who have not yet received the COVID-19 vaccine and would like to receive it can visit one of [facility] vaccine clinics. There are many vaccine clinic locations within the [facility]. For locations and available times, please visit [email or web address] It is important to note that some COVID mobile vaccine clinics are held outdoors and may be canceled in rainy or stormy conditions. To learn more about pediatric vaccinations (ages 5-11), we invite you to visit the [facility] webpage. [email or web address] [email or web address].htmlTo learn more about the COVID-19 vaccine, we invite you to visit the CDC website for a list of frequently asked questions.https://www.cdc.gov/coronavirus/2019-ncov/vaccines/faq.html [facility] Patient Portal Access Instructions: Stay connected with your healthcare team and access your personal medical information anytime with the [facility] Patient Portal. Please follow the directions below to create your [facility] account: 1.Access the email account you provided upon registration to the hospital/physician office.2.Look for an invitation email from [facility].3.Open the email and access the invitation link: AcceptInvitation to [facility].4.Fill in the required pablo to create your account. To access your account, visit [employer]/Handipointsshy. Click the blue button labeled Access Patient Portal and then log in with the username and password that you created in the steps above. You will be able to view your test results, lab results, a summary of your visits, upcoming appointments and more. There is also a convenient messaging option where you can send secure messages to your p talitavider. In addition, you will have the ability to download any documents or summaries to your computer and/or send the information securely to a physician. Remember that your healthcare information is confidential, so carefully consider who you will allowto register on the [facility] for access to your information. You can also access the [facility] on the [place] [facility] ivan. Simply click on Patient Portal and then log into your account. If you would like to receive a full copy of your medical records, please contact the [facility] Medical Records Department by calling [phone], Wednesday through Wednesday between 8 a.m. and 4:30 p.m. HOW TO SAFELY DISPOSE OF PRESCRIPTION MEDICATIONS Please use one of the following methods to safely dispose of your unused medications. 1.Use a drug disposal kit: the drug disposal pouch allows you to safely discard your old and unuseddrugs. Ask your nurse to give you one when you are discharged.2.Visit a local take-back location: Many local pharmacies and police departments have programs that collect old and unwanted prescriptiondrugs. Call your local pharmacy or go to [email or web address] to find one close to you.3.Make use of household items: Use cat litter or old coffee grounds to dispose medications if other options arenot available. Mix your drugs with these household products, seal them in an airtight container andthrow it into the garbage. Call [facility]: [phone] to be sure your drugs can be disposed of in this way. Some medicines may require a different approach.4.Never flush your medications down the toilet. IF YOU HAVE BEEN PRESCRIBED AN OPIOID FOR PAIN If you have been prescribed an opioid (such as hydrocodone, oxycodone or morphine), it is critical to understand the possible side effects and risks of opioid pain medications. Even when taken as directed, opioids can have several side effects including: Tolerance, meaning you might need to take more of a medication for the same pain relief. Nausea, vomiting and/or constipation. Sleepiness, dizziness, dry mouth, confusion, depression or itching. Physical dependence, meaning you have withdrawal symptoms when a medication is stopped, can develop within a few days. KNOW YOUR RESPONSIBILITIES It is important to know exactly how much and how often to take the opioid pain medications you are prescribed. Never take opioids in higher amounts or more often than prescribed. Do not combine opioids with alcohol or other drugs that cause drowsiness, such as benzodiazepines, also known as benzos, including diazepam and alprazolam, muscle relaxants or sleep aids. Never sell or share prescription opioids. This is illegal. Store opioids in a secure place and out of reach of others (including children, family, friends and visitors). The last page of this document has been signed and retained as a CHART COPY. Signatures Patient Education Materials Nausea and Vomiting, Adult, Ujwd-ko-Lzsq Monitored Anesthesia Care, Care After Colon Polyps Medication Leaflets My discharge plan and instructions have been reviewed and explained to me and I,JEAN BLACKMON understand my current condition and have read and understand these discharge instructions. I have received a written copy of the plan/instructions. If I have questions, I am aware that I should contact my doctor. Patient/Rn Cardiac Rehab Signature: Date/Time: Relationship to Patient: Witness Name/Signature: Date/Time: [facility]01-22-2024 Anesthesiology Consult note Patient: JEAN BLACKMON Age: 78 years Sex: Male : 1945 Associated Diagnoses: None Author: KATIUSKA TURNER APRN-PHOTOGRAPHER SCIENTIFIC Assessment Postanesthesia assessment Vitals: Vital signs from flowsheet : Vital Signs 11/22/2023 9:10 EST Heart Rate Monitored 69 bpm bpm Respiratory Rate - Anes 23 br/min br/min Systolic Blood Pressure Non-Invasive 114 mmHg mmHg Diastolic Blood Pressure Non-Invasive 80 mmHg mmHg 11/22/2023 9:05 EST Heart Rate Monitored 66 bpm bpm Respiratory Rate - Anes 29 br/min br/min Systolic Blood Pressure Non-Invasive 129 mmHg mmHg Diastolic Blood Pressure Non-Invasive 80 mmHg mmHg 11/22/2023 9:00 EST Heart Rate Monitored 71 bpm bpm Respiratory Rate - Anes 48 br/min br/min Systolic Blood Pressure Non-Invasive 118 mmHg mmHg Diastolic Blood Pressure Non-Invasive 74 mmHg mmHg 11/22/2023 8:58 EST Systolic Blood Pressure Non-Invasive 157 mmHg mmHg Diastolic Blood Pressure Non-Invasive 93 mmHg mmHg 11/22/2023 8:06 EST Temperature Temporal Artery 36.5 DegC Peripheral Pulse Rate 88 bpm Respiratory Rate 21 br/min HI Systolic Blood Pressure Non-Invasive 147 mmHg HI Diastolic Blood Pressure Non-Invasive 83 mmHg , Measurements from flowsheet . Mental status: alert & oriented x 4. Respiratory function: respirations are non-labored. Respiratory support: none. CV function: Normal rate. Cardiovascular support: none. Pain. Nausea status: see nursing documentation of medications. Postoperative hydration status: within normal limits. Digitally Signed by KATIUSKA TURNER on 11/22/2023 09:15 AM [facility]01-22-2024 Note SIDNEY ADMISSION HISTORY AND PHYSICIAL CHIEF COMPLAINT: HISTORY OF PRESENT ILLNESS: REVIEW OF SYSTEMS: ACTIVE PROBLEMS: (14) COVID-19 vaccination declined (4702211475) Diarrhea (517167981) Essential hypertension (32362123) Full code status (992735767) Grade A1 albuminuria (5328275780) Pneumococcal vaccination declined by patient (4090886065) Pure hypercholesterolemia (591150925) Refused influenza vaccine (409634571) S/P CABG x 2 (5568955663) Sinus arrhythmia (909632836) Systolic murmur (03811388) Type 2 diabetes mellitus with albuminuria (879037645) Type 2 diabetes mellitus with cardiac complication () Type 2 diabetes mellitus with hyperlipidemia () MEDICATIONS: Active Inpt Meds: None Active PRN Meds: None One Time Meds: None Active IV Meds: Lactated Ringers Infusion 1,000 mL (LR 1,000 mL) Start: 11/22/23 8:01:00 EST, Rate: 50 mL/hr, 11/22/23 8:01:00 EST ALLERGIES: (1) sulfa FAMILY HISTORY: SOCIAL HISTORY: PHYSICAL EXAM: VITALS: [id number]R3MzorMl(kg) 11/22 08:0636.5--372611PL39/22 85.0 11/22 85.0 24 Hr Tmax: 36.5 at 11/22 08:06 36 Hr Tmax: 36.5 at 11/22 08:06 Vital Signs are the last 5 in the past 48 hours. Weights display the last 5 within 7 days. Initial Wt: 11/22 85.0 kg 187 lb Current Wt: 11/22 85.0 kg 187 lb GENERAL: HEENT: CARDIOVASCULAR: RESPIRATORY: ABDOMEN: EXREMETIES: NEUROLOGICAL: PSYCHIATRIC: LABS: 36hr Labs 11/22 0826 Blood Glucose, [id number] Blood Glucose, [id number] DIAGNOSTICS: IMPRESSION: PLAN: History and Physical Update I have examined the patient; reviewed the H&P and there are no changes to the H&P unless noted below. Digitally Signed by CLYDE MAGDALENO MD on 11/22/2023 09:01 AM [facility]01-22-2024 Anesthesiology Consult note Patient: JEAN BLACKMON Age: 78 years Sex: Male : 1945 Associated Diagnoses: None Author: KATIUSKA TURNER APRN-PHOTOGRAPHER SCIENTIFIC Preoperative Information Time of last solid food intake: 11/22/2023 00:00:00 Time of last clear liquid intake: 11/22/2023 06:30:00 Anesthesia history Patient's history: negative. Family's history: negative. Health Status Allergies: Allergic Reactions (Selected) Severity Not Documented Sulfa- Tongue swelling., Allergies (1) ActiveReaction sulfaTongue swelling Current medications: (Selected) Inpatient Medications Ordered LR 1,000 mL: 50 mL/hr, Intravenous Prescriptions Prescribed dicyclomine 20 mg oral tablet: 20 mg, 1 tab(s), Oral, QID, 30 to 60 minutes before meals, 30 tab(s), 0 Refill(s) lisinopril 30 mg oral tablet: 30 mg, 1 tab(s), Oral, qDay, 90 tab(s), 3 Refill(s) pravastatin 40 mg oral tablet: 40 mg, 1 tab(s), Oral, qDay, 90 tab(s), 3 Refill(s), Medications (1) Active Scheduled: (0) Continuous: (1) Lactated Ringers 1,000 mL 1,000 mL, Intravenous, 50 mL/hr PRN: (0) Problem list: Medical Diarrhea / SNOMED CT 720562204 / Confirmed Essential hypertension / SNOMED CT 29693313 / Confirmed Full code status / SNOMED CT 069657983 / Confirmed Grade A1 albuminuria / SNOMED CT 8842536229 / Confirmed S/P CABG x 2 / SNOMED CT 7151212872 / Confirmed Refused influenza vaccine / SNOMED CT 521391525 / Confirmed Sinus arrhythmia / SNOMED CT 166786272 / Confirmed Pneumococcal vaccination declined by patient / SNOMED CT 0433739873 / Confirmed Pure hypercholesterolemia / SNOMED CT 953889748 / Confirmed COVID-19 vaccination declined / SNOMED CT 5185032541 / Confirmed Systolic murmur / SNOMED CT 84116580 / Confirmed Type 2 diabetes mellitus with albuminuria / SNOMED CT 172768766 / Confirmed Type 2 diabetes mellitus with cardiac complication / SNOMED CT 779984412 / Confirmed Type 2 diabetes mellitus with hyperlipidemia / SNOMED CT 569743740 / Confirmed, Active Problems (14) COVID-19 vaccination declined Diarrhea Essential hypertension Full code status Grade A1 albuminuria Pneumococcal vaccination declined by patient Pure hypercholesterolemia Refused influenza vaccine S/P CABG x 2 Sinus arrhythmia Systolic murmur 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 Family History: No family history items have been selected or recorded. Procedure history: Patella ([id number]) in 2013 at 69 Years. Comments: 06/23/2022 16:22 Anabell Ugalde RN left Bypass ([id number]) in the month of 05/2013 at 67 Years. Patella ([id number]) in 2010 at 66 Years. Cataract ([id number]). Social History Social & Psychosocial Habits Alcohol 11/22/2023 Use: Current Type: Beer Frequency: 1-2 times per month Substance Abuse 11/22/2023 Use: Never Tobacco 11/22/2023 Tobacco Use: Never (less than 100 in l Exposure to Tobacco Smoke Lives in non-smoking home Home/Environment 11/22/2023 Primary Ore Miner: self Nutrition/Health 11/22/2023 Caffeine intake amount: 3-4 servings per day, coffee . Physical Examination Vital Signs 11/22/2023 8:06 EST Temperature Temporal Artery 36.5 DegC Peripheral Pulse Rate 88 bpm Respiratory Rate 21 br/min HI Systolic Blood Pressure Non-Invasive 147 mmHg HI Diastolic Blood Pressure Non-Invasive 83 mmHg Vital Signs(last 24 hrs) Last Charted SBPH 147mmHg (NOV 22 08:06) DBP83 mmHg (NOV 22 08:06) BMI28.5 (NOV 22 08:15) Measurements from flowsheet : Measurements 11/22/2023 8:15 EST Height 172.7 cm Admission Weight 85 kg [place] Body Weight 68.38 kg BSA Admission 1.99 Body Mass Index 28.5 kg/m2 11/22/2023 8:06 EST Height 172.7 cm Height in inches 68 inch(es) Admission Weight 85 kg Weight Lbs 187 lb Weight Method Stated [place] Body Weight 68.38 kg Admission Body Mass Index 28.5 m2 Pain assessment: Pain Assessment 11/22/2023 8:06 EST Primary Pain Intensity 0 Pain Scale Type 0-10 Pain scale . General: Alert and oriented. Airway: Normal temporomandibular joint mobility, Normal mouth. Mallampati classification: III (soft palate, base of uvula visible). Dentition Evaluation: Dentures, lower, Dentures, upper. Respiratory: Respirations are non-labored. Cardiovascular: Normal rate. Neurologic: Alert, Oriented. Review / Management Results review: No qualifying data available , Lab results 11/22/2023 8:29 EST Lactated Ringers Injection Begin Bag 1,000 mL mL 11/22/2023 8:28 EST Continuous IV Infusions lr Forearm Right 11/22/2023 22 gauge Peripheral IV Activity: Insert new site Peripheral IV Dressing Condition: Clean, Dry, Intact Peripheral IV Dressing Activity: Transparent dressing Peripheral IV Line Status/Patency: Flushes easily Peripheral IV Line Care: Secured with tape Peripheral IV Site Condition: No complications Peripheral IV Equipment: Extension set, PRN Adaptor Peripheral IV Number of Attempts: 1 11/22/2023 8:26 EST Blood Glucose, Capillary 107 mg/dL Urinary Elimination Voiding, no difficulties IV Present Present Allergies Yes Anesthesia Extension Set Applied Yes Textbook Associate On Yes Consent Form Signed Yes Patient Dressed In Hospital gown, No undergarments Pre-op Preparation Glasses removed History & Physical Update On Chart Yes History & Physical On Chart Yes Bowel Prep Completed Yes NPO Status Maintained Allergy Band on and Verified Yes Patient ID Band on and Verified Yes Implants Verified Yes Pacemaker/AICD Verified Yes Site Verified by Patient/Family Yes Anesthesia Consent Signed Yes Blood Consent Signed No Last Fluid Intake 11/22/2023 6:30 Last Food Intake 11/21/2023 8:00 Last Void 11/22/2023 6:00 11/22/2023 8:15 EST Designated Person #1 We May Share JENNIFER BOYER [phone] Designated Person #1 Relationship Spouse Height 172.7 cm Admission Weight 85 kg [place] Body Weight 68.38 kg BSA Admission 1.99 Body Mass Index 28.5 kg/m2 Status N/A Sensory Deficits None Infectious Disease Symptoms Patient states no symptoms Infectious Disease Recent Exposure No Alcohol and Drug Use No Employee of Institutional Living No Health Care Employee No History of Exposure to TB No History of Positive Chest X-Ray for TB No History of Positive TB Skin Test No Homeless No Known Immunosuppression No Recent Immigrant No Resident of Institutional Living No Bloody Sputum No Fatigue No Fever No Loss of Appetite No Night Sweats No Persistent Cough > 3 Weeks No Weight Loss No Barriers to Learning None evident Teaching Method Explanation Preferred Spoken Language Senegalese Preferred Written Language Senegalese Information Given by Patient Patient's Current Physicians CRISTA PCP Discharge To, Anticipated Home independently Prev Test Positive/Diagnosis w/COVID-19 Yes Previous COVID-19 Positive Date 2021 Current Quarantine/Isolated any Illness No Any Contact with Sick Animals/Birds No Traveled Anywhere in Last 30 Days No N/A Personal Devices, Patient Valuables None Admission Note-Nursing Procedure/Therapy Intake 11/22/2023 8:14 EST SN - Proc - Anesthesia Type MAC SN - Proc - EBL 0 mL SN - Proc - Actual Procedure COLONOSCOPY 11/22/2023 8:14 EST SN - GCD - Post-operative Diagnosis DIARRHEA SN - GCD - Case Level OPD Level 3 11/22/2023 8:13 EST SN - CAt - Case Attendee SN - CAt - Case Attendee SN - CAt - Case Attendee SN - CAt - Case Attendee SN - CAt - Case Attendee SN - CAt - Case Attendee SN - CAt - Case Attendee SN - CAt - Case Attendee SN - CAt - Role Performed Primary Surgeon SN - CAt - Role Performed Medical Administrative Specialist 1 SN - CAt - Role Performed Oil Boiler SN - CAt - Role Performed PHOTOGRAPHER SCIENTIFIC 11/22/2023 8:06 EST Height 172.7 cm Height in inches 68 inch(es) Admission Weight 85 kg Weight Lbs 187 lb Weight Method Stated [place] Body Weight 68.38 kg Admission Body Mass Index 28.5 m2 Temperature Temporal Artery 36.5 DegC Peripheral Pulse Rate 88 bpm Respiratory Rate 21 br/min HI Systolic Blood Pressure Non-Invasive 147 mmHg HI Diastolic Blood Pressure Non-Invasive 83 mmHg Primary Pain Intensity 0 Pain Scale Type 0-10 Pain scale Monitor Alarms On and Limits Checked Heart Sounds ICU S1S2 Heart Rhythm Regular Oxygen Therapy Room air Oxygen Saturation 96 % Abdomen Description Non-distended, Symmetric, Soft Abdomen Palpation Non-Tender, Soft Bowel Sounds All Quadrants Present Urinary Elimination Voiding, no difficulties Skin Temperature Warm Skin Description [place] Skin Integrity Intact Extremity Movement Equal Characteristics of Speech Clear Level of Consciousness Alert JUANJOSE Yes Strength All Extremities Strong Affect/Behavior Appropriate, Calm, Cooperative Orientation Oriented x 4 Orientation Assessment Oriented x 4 Assistive Device None Positioning Repositions self Activity Status ADL Awake Standard Safety ID band on, Allergy Band on, Call device within reach, Bed in low position, Wheels locked, Upper/Half-Length side-rails up, Safety level maintained, Non-Slip footwear . Assessment and Plan [place] [employer] Anesthesiologists (ASA) physical status classification: Class III. Anesthetic Preoperative Plan Anesthetic technique: MAC. Informed consent: signed by patient. Digitally Signed by KATIUSKA TURNERPHOTOGRAPHER SCIENTIFIC on 11/22/2023 08:50 AM [facility]ments Appointment Date:07/27/2022 03:30:00 PM Scheduled Provider:VON TOBIN DO Location:[facility] Appointment Type:PC Wellness Annual Diagnostic Tests Pending * Hepatitis C Antibody IgG 06/27/22 [facility] Evaluation + Plan note Future Appointments Appointment Date:07/27/2022 03:30:00 PM Scheduled Provider:VON TOBIN DO Location:[facility] Appointment Type:PC Wellness Annual [facility] Evaluation + Plan note Future Appointments Appointment Date:01/31/2024 11:30:00 AM Scheduled Provider:VON TOBIN DO Location:[facility] Appointment Type:PC OV [facility] Hospital course Narrative No data available for this section [facility] Hospital Discharge instructions No data available for this section [facility] Progress note No data available for this section [facility] Summary Purpose Family History No Family History Records FoundNo Family History Records Found No data available for this section No data available for this section No Family History Records FoundNo Family History Records Found Advance Directives No Advanced Directives Records FoundNo Advanced Directives Records FoundNo Advanced Directives Records FoundNo Advanced Directives Records Found Additional Source Comments (unrecognized sect ion and content) No Status Records FoundNo Status Records FoundNo Status Records FoundNo Status Records Found INFORMATION SOURCE (unrecogn ized section and content) DATE CREATED AUTHOR 10/07/2021 [facility] [place] [facility] [employer] DATE CREATED AUTHOR AUTHOR'S ORGANIZ ATION 04/17/2022 [facility] [place] [facility] [employer] DATE CREATED AUTHOR AUTHOR'S ORGANIZ ATION 11/27/2023 [facility] ([place] DATE CREATED AUTHOR AUTHOR'S ORGANIZ ATION 08/19/2024 [facility] Care Team (unrecognized sect ion and content) Care Team Personnel Name: VON TOBIN DO Position: P4 Physician - Primary Care Member Role: Primary Care Physician Address: Address: [address] [place] [phone] Care Team Personnel Name: VON TOBIN DO Position: P4 Physician - Primary Care Member Role: Primary Care Physician Address: Address: [address] [place] [phone] [place] [address] Patient Care team informatio n (unrecognized section and content) Care Team Personnel Name: VON TOBIN DO Position: P4 Physician - Primary Care Member Role: Primary Care Physician Address: Address: [address] [place] [phone] [place] [address] Care Team Related Persons Name: MERLIN BLACKMON Address: Home [address], [place] [phone] [place] Address: Temporary [address] [place] [phone] Care Team Personnel Name: VON TOBIN DO Position: P4 Physician - Primary Care Member Role: Primary Care Physician Address: Address: [address] [place] [phone] [place] [address] Care Team Related Persons Name: MERLNI BLACKMON Address: [address] [phone] Address: [address] [phone] FOR RECORDS PERTAINING TO PATIENTS WHO ARE OR HAVE BEEN ENROLLED IN A CHEMICAL DEPENDENCY/SUBSTANCEABUSE PROGRAM, SOME INFORMATION MAY BE OMITTED. This clinical summary was aggregated from multiple sources. Caution should be exercised in using it in the provision of clinical care. This summary normalizes information from multiple sources, and as a consequence, information in this document may materially change the coding, format and clinical context of patient data. In addition, data may be omitted in some cases. CLINICAL DECISIONS SHOULD BE BASED ON THE PRIMARY CLINICAL RECORDS. [facility] [employer] [facility]. provides no warranty or guarantee of the accuracy or completeness of information in this document.
== END | disposition home or self-care (01) ==
LOC: MTLAB 08:31
PROVIDERS: PCP Family Medicine; Referring Provider Family Medicine; Visit Provider Family Medicine
DX: I10 Essential (primary) hypertension (principal); E78.5 Hyperlipidemia, unspecified
CPT/HCPCS: 36415; 80053; 80061; 85025

== ENCOUNTER → 2025-08-07 | Outpatient (CLI) | payer MEDICARE, SELFPAY ==
[2025-08-07 10:08] LABS: Hematocrit 42.4 % (40-54); Hemoglobin 14.9 g/dL (13.0-16.5); Mean Corp Hgb Conc 35.1 g/dL (32-36); Mean Corpuscular Volume 94.4 fL (80-94); Mean Platelet Vol. 9.9 fl (6.2-12.0); Platelet Count 200 K/mm3 (150-450); RBC Distribution Width CV 12.2 % (11.6-14.6); RBC Distribution Width SD 42.8 fl (35.1-43.9); Red Blood Count 4.49 M/mm3 (4.6-6.2); White Blood Count 5.7 K/mm3 (4.4-11.0)
[2025-08-07 10:45] LABS: Microalbumin,Random Urine 207.0 mg/L (<20 mg/L)
[2025-08-07 11:06] LABS: AST(SGOT) 59 U/L (<=37); Alanine Aminotransfer ALT/SGPT 91 U/L (<=46); Albumin, Serum 4.0 g/dL (3.4-4.8); Alkaline Phosphatase 53 U/L (40-129); Anion Gap 12 (5-15); BUN 16 mg/dL (4-19); BUN/Creat Ratio 13.8 RATIO (10-20); Calcium,Total 9.9 mg/dL (7.6-11.0); Carbon Dioxide 22.9 mmol/L (21.0-32.0); Chloride 105 mmol/L (98-108); Cholesterol 162 mg/dL (<=200); Globulin 3.5 g/dL (2.2-4.2); Glucose 108 mg/dL (70-99); Low Density Lipoprotein Calc. 84 mg/dL; PSA,Total - Annual Screen 2.08 ng/mL (0.02-4.00); Potassium 4.6 mmol/L (3.3-5.1); Triglycerides 133 mg/dL; Very Low Density Lipoprotein 27 mg/dL (5-40); cholesterol:hdl ratio screen 3.16
== END | disposition home or self-care (01) ==
LOC: MTLAB 08:58
PROVIDERS: PCP Family Medicine; Referring Provider Family Medicine; Visit Provider Family Medicine
DX: E11.9 Type 2 diabetes mellitus without complications (principal); E78.5 Hyperlipidemia, unspecified; Z12.5 Encounter for screening for malignant neoplasm of prostate; I15.2 Hypertension secondary to endocrine disorders
CPT/HCPCS: 36415; 80053; 80061; 82043; 84153; 85027; G0103